=== PATIENT | female | born 1990 | race Caucasian/White ===

== ENCOUNTER 2022-07-18 09:45 | Outpatient (REF) | payer OTHER, SELFPAY ==
[2022-07-18 11:38] LABS: Hematocrit 35.9 % (37.0-47.0); Mean Corpuscular HGB Conc 33.4 g/dl (31.0-35.0); Mean Corpuscular Hemoglobin 29.2 pg (27.0-33.0); Mean Corpuscular Volume 87.3 fL (80.0-98.0); Mean Platelet Volume 9.8 fL (9.4-12.3); Platelet Count 280 X10*3/uL (160-400); Red Blood Count 4.11 X10*6/uL (4.20-5.50); Red Cell Distribution Width 12.7 % (11.0-16.0); White Blood Count 7.9 X10*3/uL (4.8-10.8)
[2022-07-18 11:40] LABS: Appearance Urine Cloudy; Color Urine Yellow; Glucose Urine UA Negative (Negative); Leukocyte Esterase Urine Trace (Negative); Nitrite Urine Negative (Negative); PH 5.5 (5.0-9.0); Specific Gravity - Urine 1.015 (1.005-1.025); UMIC TRIGGER UA YES; Urine Blood Small (1+) (Negative); Urine Ketones Negative (Negative); Urine Protein Negative (Neg-Trace)
[2022-07-18 11:59] LABS: Bacteria Urine 1+ (None Seen); Hyaline Casts Urine 0-2 /LPF (0-2); WBC Urine 0-5 /HPF (0-5)
[2022-07-18 12:00] LABS: RBC Urine 0-2 /HPF (0-2)
[2022-07-18 12:35] LABS: TSH reflex Free T4 1.18 uIU/mL (0.32-4.0)
[2022-07-18 12:43] LABS: Alanine Aminotransferase 18 U/L (0-31); Albumin Level 4.1 g/dL (3.5-5.0); Alkaline Phosphatase 56 U/L (39-117); Anion Gap 16 (12-20); Aspartate Amino Transferase 14 U/L (5-31); Bilirubin Total 0.2 mg/dL (0.0-1.0); Blood Urea Nitrogen 9 mg/dL (9-16); Carbon Dioxide 21 mmol/L (22-29); Chloride 105 mmol/L (96-108); Cholesterol 179 mg/dL; Estimated Glomerular Filt Rate > 60; Glucose Fasting 87 mg/dL (60-99); HDL Cholesterol 33 mg/dL; LDL Cholesterol Calculated 107 mg/dl; Potassium 4.6 mmol/L (3.3-5.1); Sodium 137 mmol/L (135-145); Total Protein 6.9 g/dL (6.5-8.0); Triglycerides 197 mg/dL
== END 2022-07-18 09:46 | disposition home or self-care (01) ==
LOC: HO.WFDLDS 09:45
PROVIDERS: Visit Provider Hospitalist
DX: Z00.00 Encounter for general adult medical examination without abnormal findings (principal)
CPT/HCPCS: 36415; 80053; 80061; 81001; 84443; 85027

== ENCOUNTER 2022-07-22 10:42 | Outpatient (REF) | payer OTHER, SELFPAY ==
[2022-07-22 14:17] LABS: Appearance Urine Clear; Color Urine Yellow; Glucose Urine UA Negative (Negative); Leukocyte Esterase Urine Negative (Negative); Nitrite Urine Negative (Negative); PH 5.5 (5.0-9.0); UMIC TRIGGER UA YES; Urine Blood Trace (Negative); Urine Ketones Negative (Negative); Urine Protein Negative (Neg-Trace)
[2022-07-22 14:24] LABS: Iron 65 mcg/dL (30-160); Percent Iron Saturation 18 % (15-50); Total Iron Binding Capacity 366 mcg/dL (228-428); Unsaturated Iron Binding 301 ug/dL
[2022-07-22 14:29] LABS: Bacteria Urine None Seen (None Seen); RBC Urine 0-2 /HPF (0-2); Squamous Epithelial Cell Urine 0-2 /HPF (0-2); WBC Urine 0-5 /HPF (0-5)
[2022-07-22 14:30] LABS: Hyaline Casts Urine 0-2 /LPF (0-2)
[2022-07-22 15:16] LABS: Folate 14.4 ng/mL (> or = 4.0); Vitamin B12 316 pg/mL (200-900)
== END 2022-07-22 10:43 | disposition home or self-care (01) ==
LOC: HO.WFDLDS 10:42
PROVIDERS: Visit Provider Hospitalist
DX: D64.9 Anemia, unspecified (principal); Z11.3 Encounter for screening for infections with a predominantly sexual mode of transmission
CPT/HCPCS: 36415; 81001; 82607; 82746; 83540

== ENCOUNTER 2023-09-27 08:49 | Outpatient (AMB) | payer BC, SELFPAY ==
--- NOTE | 2023-09-27 08:54 | MHC.PC.OV ---
Vital Signs 09/27/23 08:56 Height 5 ft 4 in Weight 229 lb BMI 39.3 BP 120/68 Blood Pressure Location Lt brachial Position Sitting Pulse 83 Pulse Source Pulse Oximeter Pulse Oximetry (%) 98 Oxygen Delivery Method Room Air Intake Visit Reasons: Physical Exam Intake Note: Patient is here today for her physical. Patient would like to talk about weight loss shot. Allergies No Known Allergies Allergy (Verified 09/27/23 08:57) Tobacco use date assessed: 09/27/23 Dental Screening Dental Screen Date: 09/27/23 Did you have a dental visit in the last 12 months?: Yes Did you have a dental problem in the last 6 months where you did not have access to dental care?: No Was dental information given to patient?: Patient has dentist HPI Physical Exam HPI Details 33 y/o female presents for a CPE with f/u labs and health maintenance. No recent labs to review. She would like to discuss weight management. She notes she goes to the gym about 2-3x a week. She has not had a pap smear for more than 3 years and states she needs an Ob-Practice Support Specialist. Pt reports triglycerides have been in the 300s. She notes she is undergoing Accutane treatment. [facility] Surgical History Hx of appendectomy Social History Housing: House Patient Tobacco Use Status: Never used Tobacco e-Cigarette/Vaping Use: Never Used service: No Current occupational status: employed Current occupational exposures/hazards: No Cognitive needs: No Hearing needs: No Vision needs: No Questionnaire Thrive Questionnaire Date Thrive assessed: 07/06/22 ERNESTO-7 AMB Questionnaire ERNESTO-7 Date ERNESTO - 7 assessed: 07/06/22 Source: Developed by Drs. Sina Scanlon, Loly Armas, Jaya Eason and colleagues, with an educational lourdes from [employer]. Review of Systems Const Denies chills, Denies fatigue, Denies fever(s), Denies headache(s) and Denies weakness Eyes Denies change in vision ENT Denies dizziness, Denies headache(s), Denies hearing loss, Denies nasal congestion, Denies sinus pain, Denies sinus pressure and Denies sore throat Card Denies chest pain, Denies lightheadedness, Denies dyspnea and Denies other (palpitations) Resp Denies cough, Denies dyspnea and Denies wheezing GI Denies abdominal pain, Denies melena, Denies hematochezia, Denies change in bowel habits, Denies dyspepsia and Denies nausea Denies hematuria and Denies dysuria Musc Denies abnormal gait, Denies myalgias, Denies arthralgias, Denies numbness and Denies tingling Skin/Breast Denies rash, Denies unusual bruising and Denies wounds Neuro Denies abnormal gait, Denies dizziness, Denies headache(s), Denies memory loss, Denies numbness, Denies Sensory deficit (Neuro), Denies tingling and Denies weakness Psych Denies anxiety, Denies depression and Denies memory loss Endo Denies cold intolerance, Denies fatigue, Denies heat intolerance, Denies polydipsia and Denies polyuria Viet/Lymph Denies easy bleeding and Denies easy bruising Aller/Immun Denies wheezing Physical exam (Primary Care) Vital Signs: Last Vital Signs Pulse 83 09/27/23 08:56 BP 120/68 09/27/23 08:56 Pulse Ox 98 09/27/23 08:56 Oxygen Delivery Method Room Air 09/27/23 08:56 BMI result Body Mass Index 39.3 Tobacco/Smoking Status: Tobacco use Status Tobacco use date assessed 09/27/23 09/27/23 09:04 Patient Tobacco Use Status Never used Tobacco 09/27/23 08:56 e-Cigarette/Vaping Use Never Used 09/27/23 08:56 Thrive Assessment: Date of Thrive Assessment Date Thrive assessed 07/06/22 09/27/23 08:56 Const General: no acute distress, well developed, alert and awake Nutritional Appearance: well nourished and obese Orientation/consciousness: patient oriented x3 HENMT Head: Yes normocephalic and Yes atraumatic Ears: hearing grossly normal bilaterally and TM's normal bilaterally General nose exam: Normal external nose present and Normal nares present Mouth: Normal oral and palatal mucosa present and moist mucous membranes Teeth and gingiva: dentition normal Throat: Yes posterior oropharynx normal Eyes General: appearance normal, both eyes and all related structures Pupils: Equal, round and reactive pupils present and Pupil accommodation reflex normal EOM: EOMs intact bilaterally Neck Neck: Yes normal visual inspection, Yes no lymphadenopathy and Yes trachea midline Thyroid: Thyroid normal Carotids: no bruits Lymphatic: no lymphadenopathy noted Chest Chest palpation & inspection: normal inspection of the chest Resp Effort & Inspection: normal respiratory effort Auscultation: clear to auscultation bilaterally Cardio Rate: regular rate Rhythm: regular rhythm Heart sounds: S1 normal heart sound present, S2 normal heart sound present, no gallops, no murmurs and no rubs Bruits: no abdominal aortic bruits and no carotid bruits GI Palpation (GI): No Abdominal aortic bruit present, Soft to palpation, nontender, No hepatosplenomegaly present and No Rebound tenderness present Auscultation: normal bowel sounds General: Yes no CVA tenderness Back/Spine/Pelvis Back: no CVA tenderness Cervical Spine: cervical ROM normal and No Cervical spine tenderness Thoracic/Lumbar Spine: thoraco-lumbar ROM normal, No pain with thoraco-lumbar ROM, No thoracic spinal tenderness and No lumbar spinal tenderness Skin Lesions: no lesions Rashes: no rashes Trauma: no lacerations or abrasions Wounds: no wounds Nails: normal Neuro General: patient oriented x3 Cranial nerves: Yes Equal, round and reactive pupils present Cognition (Neuro): normal cognition Gait exam (Neuro): Normal gait present Motor exam (neuro): 5/5 motor strength present throughout Sensory Exam: No Sensory deficit (Neuro) Deep tendon reflexes (DTR's): Right patellar reflex intensity grade: 2+ and Left patellar reflex intensity grade: 2+ Extrem General: Yes normal to inspection and No edema Psych Appearance: grossly normal Affect: normal affect Attitude: cooperative Thought process: Normal thought process present Assessment and Plan Assessment & Plan (1) Annual physical exam: Code(s): Z00.00 - Encounter for general adult medical examination without abnormal findings Plan: 33-year-old?female?presents?for?complete?physical?exam Encouraged?healthy?diet?with?active?lifestyle?and?plenty?of?exercise (2) Obesity (BMI 30-39.9): Code(s): E66.9 - Obesity, unspecified Plan: Check?labs Patient?is?interested?in?medications?for?weight?loss. Will?follow-up?on?labs?and?discuss?with?patient?regarding?medications?and?we?also?discussed?possible?referral?to?medical?weight?management. (3) Screening for cervical cancer: Code(s): Z12.4 - Encounter for screening for malignant neoplasm of cervix Plan: No?recent?Pap?smear?in?the?last?few?years. She?has?never?had?an?abnormal?Pap?smear She?would?like?a?referral?back?to[facility]?OBGYN-referred (4) Hypertriglyceridemia: Code(s): E78.1 - Pure hyperglyceridemia Orders: Orders Comprehensive [place]. Panel Fast Today Z00.00 - Encounter for general adult medical examination without abnormal findings Complete Blood Count Auto Diff Today Z00.00 - Encounter for general adult medical examination without abnormal findings Lipid Panel Today Z00.00 - Encounter for general adult medical examination without abnormal findings Microalbumin, Random (w Creat) Today I10 - Essential (primary) hypertension TSH reflex Free T4 Today Z00.00 - Encounter for general adult medical examination without abnormal findings UA and rflx microscopic Today Z00.00 - Encounter for general adult medical examination without abnormal findings Referrals [employer] Referral Z12.4 - Encounter for screening for malignant neoplasm of cervix Coding Level of Care Code Est Pt Level 3 (10831) Est Pt Prev Care 18-39y(39611) Diagnoses Annual physical exam Z00.00 Obesity (BMI 30-39.9) E66.9 Screening for cervical cancer Z12.4 Hypertriglyceridemia E78.1
[2023-09-27 08:56] VITALS: BP 120/68; PULSE 83; O2SAT 98; BMI 39.3
== END 2023-09-27 09:20 | disposition home or self-care (01) ==
PROVIDERS: PCP Family Medicine; Visit Provider Family Medicine
DX: Z00.00 Encounter for general adult medical examination without abnormal findings (principal); E66.9 Obesity, unspecified; E78.1 Pure hyperglyceridemia; Z68.39 Body mass index [BMI] 39.0-39.9, adult
CPT/HCPCS: 99395

== ENCOUNTER 2023-09-27 09:21 | Outpatient (REF) | payer BC, SELFPAY ==
[2023-09-27 11:35] LABS: MANUAL DIFF FLAG NO
[2023-09-27 11:42] LABS: Appearance Urine Clear; Color Urine Yellow; Glucose Urine UA Negative (Negative); Leukocyte Esterase Urine Negative (Negative); Nitrite Urine Negative (Negative); PH 5.5 (5.0-9.0); Urine Blood Negative (Negative); Urine Ketones Negative (Negative); Urine Protein Negative (Neg-Trace)
[2023-09-27 11:55] LABS: Basophils Percent Auto 0.3 % (0-2); Eosinophils Absolute Auto 0.2 X10*3/uL (0.0-0.4); Eosinophils Percent Auto 1.7 % (0-4); Hematocrit 40.3 % (37.0-47.0); Hemoglobin 13.5 g/dl (12.0-16.0); Imm Gran Abs Auto 0.05 X10*3/uL (0.00-0.03); Imm Gran Pct Auto 0.5 % (0.0-0.4); Lymphocytes Absolute Auto 2.8 X10*3/uL (1.2-4.9); Lymphocytes Percent Auto 28.1 % (20-40); Mean Corpuscular HGB Conc 33.5 g/dl (31.0-35.0); Mean Corpuscular Hemoglobin 29.7 pg (27.0-33.0); Mean Corpuscular Volume 88.8 fL (80.0-98.0); Mean Platelet Volume 9.4 fL (9.4-12.3); Monocytes Absolute Auto 0.5 X10*3/uL (0.1-1.2); Monocytes Percent Auto 5.1 % (2-11); Neutrophils Absolute Auto 6.4 x10*3/uL (2.0-8.3); Neutrophils Percent Auto 64.3 % (45-73); Platelet Count 289 X10*3/uL (160-400); Red Blood Count 4.54 X10*6/uL (4.20-5.50); Red Cell Distribution Width 12.8 % (11.0-16.0); White Blood Count 9.9 X10*3/uL (4.8-10.8)
[2023-09-27 12:38] LABS: Creatinine Urine 52.82 mg/dL; Microalbumin Urine < 5.0 mg/L
[2023-09-27 12:53] LABS: Alanine Aminotransferase 33 U/L (0-31); Albumin Level 4.3 g/dL (3.5-5.0); Alkaline Phosphatase 73 U/L (39-117); Anion Gap 14 (12-20); Aspartate Amino Transferase 26 U/L (5-31); Bilirubin Total 0.3 mg/dL (0.0-1.0); Blood Urea Nitrogen 7 mg/dL (9-16); Calcium 9.5 mg/dL (8.4-10.2); Carbon Dioxide 22 mmol/L (22-29); Chloride 107 mmol/L (96-108); Cholesterol 208 mg/dL (<200); Estimated Glomerular Filt Rate > 60; Glucose Fasting 100 mg/dL (60-99); HDL Cholesterol 36 mg/dL (>40); LDL Cholesterol Calculated 99 mg/dL (<100); Potassium 4.5 mmol/L (3.3-5.1); Sodium 138 mmol/L (135-145); Total Protein 7.7 g/dL (6.5-8.0); Triglycerides 368 mg/dL (<150)
[2023-09-27 12:56] LABS: TSH reflex Free T4 1.49 uIU/mL (0.32-4.0)
== END 2023-09-27 09:22 | disposition home or self-care (01) ==
LOC: HO.WFDLDS 09:21
PROVIDERS: Visit Provider Family Medicine
DX: Z00.00 Encounter for general adult medical examination without abnormal findings (principal); I10 Essential (primary) hypertension
CPT/HCPCS: 36415; 80053; 80061; 81003; 82043; 82570; 84443; 85025

== ENCOUNTER 2023-11-01 16:38 | Outpatient (AMB) | payer BC, SELFPAY ==
--- NOTE | 2023-11-01 15:40 | A.OFFPC_ITS ---
Intake Visit Reasons: f/u CPE Intake Note: Patient is following up on labs today from physical. Allergies No Known Allergies Allergy (Verified 11/01/23 16:30) Tobacco use date assessed: 11/01/23 HPI f/u CPE HPI Details 33 y/o female presents to f/u CPE-labs v ia telemedicine. Labs were drawn 09/27/23. Reviewed labs with pt. Elevated fasting glucose of 100. Mildly elevated ALT of 33. Triglycerides 368. TC 208. LDL 99. HDL low at 36. PFSH Surgical History (Reviewed 11/01/23 @ 16:31 by Gissel Fox [facility]) Hx of appendectomy Social History Housing: House Patient Tobacco Use Status: Never used Tobacco e-Cigarette/Vaping Use: Never Used service: No Current occupational status: employed Current occupational exposures/hazards: No Cognitive needs: No Hearing needs: No Vision needs: No Questionnaire Thrive Questionnaire Date Thrive assessed: 07/06/22 ERNESTO-7 AMB Questionnaire ERNESTO-7 Date ERNESTO - 7 assessed: 07/06/22 Source: Developed by Drs. Sina Scanlon, Loly Armas, Jaya Eason and colleagues, with an educational lourdes from [employer]. Physical exam (Primary Care) Tobacco/Smoking Status: Tobacco use Status Tobacco use date assessed 11/01/23 11/01/23 16:32 Patient Tobacco Use Status Never used Tobacco 11/01/23 15:41 e-Cigarette/Vaping Use Never Used 11/01/23 15:41 Thrive Assessment: Date of Thrive Assessment Date Thrive assessed 07/06/22 11/01/23 15:41 Telehealth Telehealth Location of provider rendering services: practice address Location of patient: address on file Patient Identification confirmed using: Name, : Yes Telehealth method: voice only Patient verbally consented to treatment: Yes Patient verbally consented to billing insurance company: Yes Patient informed of any privacy concerns related to visit: Yes Minutes spent on Phone/Video with Pt.: 8 Assessment and Plan Assessment & Plan (1) Hypertriglyceridemia: Code(s): E78.1 - Pure hyperglyceridemia Plan: Triglycerides?are?significantly?elevated?above?350 Start?fenofibrate Will?recheck?in?about?2?months (2) Elevated ALT measurement: Code(s): R74.01 - Elevation of levels of liver transaminase levels Plan: Likely?secondary?to?fatty?liver?disorder Encouraged?weight?loss Will?recheck?liver?enzymes?in?about?2?months If?still?elevated?will?check?liver?ultrasound (3) Elevated fasting glucose: Code(s): R73.01 - Impaired fasting glucose Plan: Mildly?elevated?fasting?blood?sugar Will?check?A1c Encouraged?weight?loss (4) Low HDL (under 40): Code(s): E78.6 - Lipoprotein deficiency Plan: Encouraged?exercise Orders: Orders Lipid Panel Today E78.6 - Lipoprotein deficiency, Z00.00 - Encounter for general adult medical examination without abnormal findings Comprehensive [place]. Panel Fast Today R74.01 - Elevation of levels of liver transaminase levels, Z00.00 - Encounter for general adult medical examination without abnormal findings Hemoglobin A1c Today E66.9 - Obesity, unspecified, R73.01 - Impaired fasting glucose Medications: New fenofibrate 160 mg PO DAILY 30 tabs 2RF 30 days E78.1 - Pure hyperglyceridemia semaglutide (weight loss) (Eliza) administer weeks 1 through 4 of therapy 0.25 mg (0.5 mL) subcut QWEEK 2 mL 2RF 28 days E66.9 - Obesity, unspecified Coding Level of Care Code Tele Est Pt Level 2 (83912) Diagnoses Hypertriglyceridemia E78.1 Elevated ALT measurement R74.01 Elevated fasting glucose R73.01 Low HDL (under 40) E78.6
== END 2023-11-01 17:00 ==
LOC: HO.HMGFM 16:38
PROVIDERS: PCP Family Medicine; Visit Provider Family Medicine
DX: E78.1 Pure hyperglyceridemia (principal); R74.01 Elevation of levels of liver transaminase levels; R73.01 Impaired fasting glucose; E78.6 Lipoprotein deficiency
CPT/HCPCS: 99441

== ENCOUNTER 2024-02-02 09:39 | Outpatient (AMB) | payer BC, SELFPAY ==
[2024-02-02 09:46] VITALS: BP 122/76; PULSE 72; RESP 13; TEMP 36.4; O2SAT 99; BMI 36.9
--- NOTE | 2024-02-02 09:46 | MHC.PC.OV ---
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 Accompanied by: Self / Same As Patient Allergies No Known Allergies Allergy (Verified 02/02/24 09:51) Tobacco use date assessed: 11/01/23 Dental Screening Dental Screen Date: 09/27/23 [facility] Medical History (Updated 02/02/24 @ 09:53 by BOBBI Kenney) No pertinent past medical history Surgical History Hx of appendectomy Social History Housing: House Patient Tobacco Use Status: Never used Tobacco e-Cigarette/Vaping Use: Never Used service: No Current occupational status: employed Current occupation: [employer] Current occupational exposures/hazards: No Cognitive needs: No Hearing needs: No Vision needs: No Questionnaire Thrive Questionnaire Date Thrive assessed: 07/06/22 ERNESTO-7 AMB Questionnaire ERNESTO-7 Date ERNESTO - 7 assessed: 07/06/22 Source: Developed by Drs. Sina Scanlon, Loly Armas, Jaya Eason and colleagues, with an educational lourdes from [employer]. Physical exam (Primary Care) Tobacco/Smoking Status: Tobacco use Status Tobacco use date assessed 11/01/23 11/01/23 16:32 Patient Tobacco Use Status Never used Tobacco 11/01/23 15:41 e-Cigarette/Vaping Use Never Used 11/01/23 15:41 Thrive Assessment: Date of Thrive Assessment Date Thrive assessed 07/06/22 11/01/23 15:41 Coding
--- NOTE | 2024-02-02 09:48 | MHC.PC.OV ---
Vital Signs 02/02/24 09:46 Height 5 ft 4 in Weight 215 lb 4 oz BMI 36.9 BP 122/76 Blood Pressure Location Rt brachial Position Sitting Respiration 13 Pulse 72 Pulse Source Pulse Oximeter Temp 97.6 F Temp Source Temporal Artery Scan Pulse Oximetry (%) 99 Oxygen Delivery Method Room Air Intake Visit Reasons: f/u hypertriglyceridemia/discuss wegovy Intake Note: Patient is here for hypertriglyceridema and to discuss wegovy. Allergies No Known Allergies Allergy (Verified 02/02/24 09:51) Tobacco use date assessed: 11/01/23 Dental Screening Dental Screen Date: 09/27/23 HPI f/u hypertriglyceridemia/discuss wegovy HPI Details Patient?presents?to?follow-up?elevated?liver?enzymes,?elevated?triglycerides?and?obesity. She?has?not?gotten?her?labs?drawn?yet?but?will?do?so?today. Started?fenofibrate?and?Wegovy She?is?tolerating?these?well She?has?lost?about?15?lb?on?Wegovy [facility] Medical History (Updated 02/02/24 @ 09:53 by [facility]ana Huerta [facility]) No pertinent past medical history Surgical History Hx of appendectomy Social History (Updated 02/02/24 @ 09:58 by Gissel Fox CMA) Household Members: Family Housing: House 75 years or older and lives alone: No Alcohol intake: current Alcohol intake frequency: holidays/special occasions only Alcohol type: other Patient Tobacco Use Status: Never used Tobacco e-Cigarette/Vaping Use: Never Used Special mookie needs: No service: No Current occupational status: employed Current occupation: [employer] Current occupational exposures/hazards: No Cognitive needs: No Hearing needs: No Vision needs: No Questionnaire Thrive Questionnaire Date Thrive assessed: 07/06/22 ERNESTO-7 AMB Questionnaire ERNESTO-7 Date ERNESTO - 7 assessed: 07/06/22 Source: Developed by Drs. Sina Scanlon, Loly Armas, Jaya Eason and colleagues, with an educational lourdes from [employer]. Review of Systems Const Denies chills, Denies fatigue, Denies fever(s), Denies headache(s) and Denies weakness ENT Denies dizziness and Denies headache(s) Card Denies chest pain, Denies lightheadedness, Denies dyspnea and Denies other (Palpitations) Resp Denies cough, Denies dyspnea, Denies wheezing and Denies other ( shortness of breath) Musc Denies numbness and Denies tingling Neuro Denies dizziness, Denies headache(s), Denies numbness, Denies tingling, Denies paresthesias and Denies weakness Psych Denies anxiety and Denies depression Endo Denies fatigue Aller/Immun Denies wheezing Physical exam (Primary Care) Vital Signs: Last Vital Signs Temp 97.6 F 02/02/24 09:46 Pulse 72 02/02/24 09:46 Resp 13 02/02/24 09:46 BP 122/76 02/02/24 09:46 Pulse Ox 99 02/02/24 09:46 Oxygen Delivery Method Room Air 02/02/24 09:46 BMI result Body Mass Index 36.9 Tobacco/Smoking Status: Tobacco use Status Tobacco use date assessed 11/01/23 02/02/24 09:58 Patient Tobacco Use Status Never used Tobacco 02/02/24 09:58 e-Cigarette/Vaping Use Never Used 02/02/24 09:58 Thrive Assessment: Date of Thrive Assessment Date Thrive assessed 07/06/22 02/02/24 09:58 Const General: no acute distress and well developed Nutritional Appearance: well nourished Orientation/consciousness: patient oriented x3 HENMT Head: Yes normocephalic and Yes atraumatic Eyes General: appearance normal, both eyes and all related structures Pupils: Equal, round and reactive pupils present EOM: EOMs intact bilaterally Resp Effort & Inspection: normal respiratory effort Auscultation: clear to auscultation bilaterally Cardio Rate: regular rate Rhythm: regular rhythm Heart sounds: S1 normal heart sound present, S2 normal heart sound present, no gallops, no murmurs and no rubs Neuro General: patient oriented x3 and gait normal Cranial nerves: Yes Equal, round and reactive pupils present Psych Affect: normal affect Assessment and Plan Assessment & Plan (1) Elevated ALT measurement: Code(s): R74.01 - Elevation of levels of liver transaminase levels Plan: Patient?has?not?gotten?her?labs?drawn?yet?but?will?do?so?today. (2) Hypertriglyceridemia: Code(s): E78.1 - Pure hyperglyceridemia Plan: Started?patient?on?fenofibrate?and?she?is?tolerating?this.??She?has?not?gotten?her?labs?drawn?yet?but?will?do?so?today. (3) Obesity (BMI 30-39.9): Code(s): E66.9 - Obesity, unspecified Plan: Started?Wegovy?0.25?mg?weekly?and?has?already?lost?15?lb?since?last?visit No?adverse?effects She?would?like?to?increase?her?dose..??0.5?mg?dose?has?not?been?available. She?has?some?0.25?mg?doses?left?and?she?will?increase?to?0.5?mg?weekly?with?these - I?will?send?a?script?for?1.0?mg?dose?and?she?will?titrate?up?to?this?when?she?runs?out?of?her?current?dosing. So?she?is?currently?on?0.25?mg?weekly?and?will?go?up?to?0.5?mg?weekly for?2?weeks?and?then?go?up?to?1.0?mg?weekly?if?she?is?tolerating?well. (4) Acne: Code(s): L70.9 - Acne, unspecified Plan: Patient?is?on?Accutane This?may?also?be?part?of?the?cause?of?her?elevated?triglycerides. Repeating?her?triglycerides?today. She?will?be?stopping?Accutane?in?about?2?weeks.??She?can?get?triglycerides?rechecked?a?few?weeks?after?that. Will?call?or?of?action?is?required Orders: Orders Lipid Panel 2 Weeks E78.1 - Pure hyperglyceridemia, Z00.00 - Encounter for general adult medical examination without abnormal findings Comprehensive [place]. Panel Fast 2 Weeks R74.01 - Elevation of levels of liver transaminase levels, Z00.00 - Encounter for general adult medical examination without abnormal findings Medications: Changed From semaglutide (weight loss) (Eliza) administer weeks 1 through 4 of therapy 0.25 mg (0.5 mL) subcut QWEEK 28 days 2 mL 2RF E66.9 - Obesity, unspecified To semaglutide (weight loss) administer weeks 1 through 4 of therapy 1 mg (0.5 mL) subcut QWEEK 28 days 2 mL 2RF E66.9 - Obesity, unspecified Coding Level of Care Code Est Pt Level 4 (72433) Diagnoses Elevated ALT measurement R74.01 Hypertriglyceridemia E78.1 Obesity (BMI 30-39.9) E66.9 Acne L70.9
== END 2024-02-02 10:14 | disposition home or self-care (01) ==
PROVIDERS: PCP Family Medicine; Visit Provider Family Medicine
DX: R74.01 Elevation of levels of liver transaminase levels (principal); E78.1 Pure hyperglyceridemia; E66.9 Obesity, unspecified; Z68.36 Body mass index [BMI] 36.0-36.9, adult; L70.9 Acne, unspecified
CPT/HCPCS: 99214

== ENCOUNTER 2024-02-02 10:25 | Outpatient (REF) | payer BC, SELFPAY ==
[2024-02-02 11:52] LABS: Estimated Average Glucose 108 mg/dL; Hemoglobin A1c % 5.4 % (<6.0)
[2024-02-02 13:06] LABS: Alanine Aminotransferase 20 U/L (0-31); Albumin Level 4.4 g/dL (3.5-5.0); Alkaline Phosphatase 73 U/L (39-117); Anion Gap 14 (12-20); Aspartate Amino Transferase 14 U/L (5-31); Bilirubin Total 0.4 mg/dL (0.0-1.0); Blood Urea Nitrogen 8 mg/dL (9-16); Calcium 9.5 mg/dL (8.4-10.2); Carbon Dioxide 24 mmol/L (22-29); Chloride 106 mmol/L (96-108); Cholesterol 194 mg/dL (<200); Estimated Glomerular Filt Rate > 60; Glucose Fasting 80 mg/dL (60-99); HDL Cholesterol 28 mg/dL (>40); LDL Cholesterol Calculated 132 mg/dL (<100); Potassium 4.1 mmol/L (3.3-5.1); Sodium 140 mmol/L (135-145); Total Protein 7.8 g/dL (6.5-8.0); Triglycerides 171 mg/dL (<150)
== END 2024-02-02 10:26 | disposition home or self-care (01) ==
LOC: HO.WFDLDS 10:25
PROVIDERS: Visit Provider Family Medicine
DX: Z00.00 Encounter for general adult medical examination without abnormal findings (principal); E78.6 Lipoprotein deficiency; R73.01 Impaired fasting glucose; E66.9 Obesity, unspecified; R74.01 Elevation of levels of liver transaminase levels
CPT/HCPCS: 36415; 80053; 80061; 83036

== ENCOUNTER 2024-05-08 15:39 | Outpatient (AMB) | payer BC, SELFPAY ==
--- NOTE | 2024-05-08 15:50 | MHC.PC.OV ---
Vital Signs 05/08/24 15:58 Height 5 ft 4 in Weight 204 lb 8 oz BMI 35.1 BP 100/70 Blood Pressure Location Rt brachial Position Sitting Respiration 16 Pulse 83 Pulse Source Pulse Oximeter Temp 98 F Temp Source Tympanic Pulse Oximetry (%) 99 Oxygen Delivery Method Room Air Intake Visit Reasons: obesity/weight loss/ HTG/elevated liver enzymes. Intake Note: obesity follow up and elevated liver enzymes Patient : No Allergies No Known Allergies Allergy (Verified 05/08/24 15:56) Tobacco use date assessed: 11/01/23 Dental Screening Dental Screen Date: 09/27/23 HPI obesity/weight loss/ HTG/elevated liver enzymes. HPI Details 34 y/o female presents to f/u obesity, weight loss. Had lost about 25 lbs since she has been started on semaglutide 1mg for weight loss. She notes she feels she could use an increase in her semaglutide as she has not lost weight in the last few weeks. Labs drawn 02/02/24. Reviewed labs with pt. Triglycerides improved from 368 to 171. TC 194. LDL 132. HDL low at 28. She reports she is no longer on fenofibrate. Had been on accutane before. FORMERLY [facility], [facility] Medical History (Updated 05/08/24 @ 16:30 by Nelson Snyder) No pertinent past medical history Surgical History Hx of appendectomy Social History (Updated 02/02/24 @ 09:58 by Gissel Fox CMA) Household Members: Family Housing: House 75 years or older and lives alone: No Alcohol intake: current Alcohol intake frequency: holidays/special occasions only Alcohol type: other Patient Tobacco Use Status: Never used Tobacco e-Cigarette/Vaping Use: Never Used Special mookie needs: No Patient : No service: No Current occupational status: employed Current occupation: [employer] Current occupational exposures/hazards: No Cognitive needs: No Hearing needs: No Vision needs: No Questionnaire Thrive Questionnaire Date Thrive assessed: 07/06/22 ERNESTO-7 AMB Questionnaire ERNESTO-7 Date ERNESTO - 7 assessed: 07/06/22 Source: Developed by Drs. Sina Scanlon, Loly Armas, Jaya Eason and colleagues, with an educational lourdes from [employer]. Review of Systems Const Denies chills, Denies fatigue, Denies fever(s), Denies headache(s) and Denies weakness ENT Denies dizziness and Denies headache(s) Card Denies chest pain, Denies lightheadedness, Denies dyspnea and Denies other (Palpitations) Resp Denies cough, Denies dyspnea, Denies wheezing and Denies other ( shortness of breath) Musc Denies numbness and Denies tingling Neuro Denies dizziness, Denies headache(s), Denies numbness, Denies tingling, Denies paresthesias and Denies weakness Psych Denies anxiety and Denies depression Endo Denies fatigue Aller/Immun Denies wheezing Physical exam (Primary Care) Vital Signs: Last Vital Signs Temp 98 F 05/08/24 15:58 Pulse 83 05/08/24 15:58 Resp 16 05/08/24 15:58 BP 100/70 05/08/24 15:58 Pulse Ox 99 05/08/24 15:58 Oxygen Delivery Method Room Air 05/08/24 15:58 BMI result Body Mass Index 35.1 Tobacco/Smoking Status: Tobacco use Status Tobacco use date assessed 11/01/23 05/08/24 15:52 Patient Tobacco Use Status Never used Tobacco 05/08/24 15:52 e-Cigarette/Vaping Use Never Used 05/08/24 15:52 Thrive Assessment: Date of Thrive Assessment Date Thrive assessed 07/06/22 05/08/24 15:52 Const General: no acute distress and well developed Nutritional Appearance: obese Orientation/consciousness: patient oriented x3 [facility] Head: Yes normocephalic and Yes atraumatic Eyes General: appearance normal, both eyes and all related structures Pupils: Equal, round and reactive pupils present EOM: EOMs intact bilaterally Resp Effort & Inspection: normal respiratory effort Auscultation: clear to auscultation bilaterally Cardio Rate: regular rate Rhythm: regular rhythm Heart sounds: S1 normal heart sound present, S2 normal heart sound present, no gallops, no murmurs and no rubs Neuro General: patient oriented x3 and gait normal Cranial nerves: Yes Equal, round and reactive pupils present Psych Affect: normal affect Assessment and Plan Assessment & Plan (1) Obesity (BMI 30-39.9): Code(s): E66.9 - Obesity, unspecified Plan: Patient?has?lost?about?25?lb. She?is?tolerating?Wegovy?1?mg?weekly. She?would?like?to?increase?this.??Will?increase?to?1.7?mg?week Continue?working?at?weight?loss (2) Elevated ALT measurement: Code(s): R74.01 - Elevation of levels of liver transaminase levels Plan: She?had?had?mildly?elevated?ALT?liver?enzyme?which?is?back?in?normal?range?with?weight?loss Recommended?ongoing?weight?loss We?can?monitor?periodically (3) Hyperlipidemia: Code(s): E78.5 - Hyperlipidemia, unspecified Plan: Patient?had?had?significantly?elevated?triglycerides?and?was?on?fenofibrate?but?also?Accutane. Fenofibrate?had?brought?her?triglycerides?down?well?but?she?has?discontinue?this?when?she?discontinued?Accutane?as?she?feels?this?was?the?likely?cause?of?her?elevated?triglycerides. Rechecking?lipids?and?triglycerides?to?ensure?that?they?are?within?normal?range We?discussed?that?if?triglycerides?are?very?high?again?we?should?discuss?resuming?fenofibrate. (4) Low HDL (under 40): Code(s): E78.6 - Lipoprotein deficiency Plan: Encouraged?increased?exercise Orders: Orders Comprehensive [place]. Panel Fast Today R74.01 - Elevation of levels of liver transaminase levels, Z00.00 - Encounter for general adult medical examination without abnormal findings Lipid Panel Today E78.5 - Hyperlipidemia, unspecified, Z00.00 - Encounter for general adult medical examination without abnormal findings Medications: Changed From semaglutide (weight loss) administer weeks 1 through 4 of therapy 1 mg (0.5 mL) subcut QWEEK 28 days 2 mL 2RF E66.9 - Obesity, unspecified To semaglutide (weight loss) administer weeks 1 through 4 of therapy 1.7 mg (0.75 mL) subcut QWEEK 3 mL 2RF 28 days E66.9 - Obesity, unspecified Coding Level of Care Code Est Pt Level 4 (16253) Diagnoses Obesity (BMI 30-39.9) E66.9 Elevated ALT measurement R74.01 Hyperlipidemia E78.5 Low HDL (under 40) E78.6
[2024-05-08 15:58] VITALS: BP 100/70; PULSE 83; RESP 16; TEMP 36.6; O2SAT 99; BMI 35.1
== END 2024-05-08 16:34 | disposition home or self-care (01) ==
PROVIDERS: PCP Family Medicine; Visit Provider Family Medicine
DX: R74.01 Elevation of levels of liver transaminase levels (principal); E66.9 Obesity, unspecified; Z68.35 Body mass index [BMI] 35.0-35.9, adult; E78.5 Hyperlipidemia, unspecified; E78.6 Lipoprotein deficiency
CPT/HCPCS: 99214

== ENCOUNTER 2024-05-30 09:24 | Outpatient (REF) | payer BC, SELFPAY ==
[2024-05-30 11:55] LABS: Alanine Aminotransferase 18 U/L (0-31); Albumin Level 4.1 g/dL (3.5-5.0); Alkaline Phosphatase 68 U/L (39-117); Anion Gap 10 (12-20); Aspartate Amino Transferase 11 U/L (5-31); Bilirubin Total 0.3 mg/dL (0.0-1.0); Blood Urea Nitrogen 8 mg/dL (9-16); Calcium 9.1 mg/dL (8.4-10.2); Carbon Dioxide 25 mmol/L (22-29); Chloride 107 mmol/L (96-108); Cholesterol 184 mg/dL (<200); Estimated Glomerular Filt Rate > 60; Glucose Fasting 86 mg/dL (60-99); HDL Cholesterol 34 mg/dL (>40); LDL Cholesterol Calculated 120 mg/dL (<100); Potassium 3.9 mmol/L (3.3-5.1); Sodium 138 mmol/L (135-145); Total Protein 7.2 g/dL (6.5-8.0); Triglycerides 154 mg/dL (<150)
== END 2024-05-30 09:25 | disposition home or self-care (01) ==
LOC: HO.WFDLDS 09:24
PROVIDERS: Visit Provider Family Medicine
DX: Z00.00 Encounter for general adult medical examination without abnormal findings (principal); R74.01 Elevation of levels of liver transaminase levels; E78.1 Pure hyperglyceridemia
CPT/HCPCS: 36415; 80053; 80061

== ENCOUNTER 2024-06-05 12:46 | Outpatient (AMB) | payer BC, SELFPAY ==
--- NOTE | 2024-06-05 12:44 | MHC.PC.OV ---
Intake Visit Reasons: f/u labs via telemedicine Allergies No Known Allergies Allergy (Verified 06/05/24 12:45) Medication List - Last Reconciled 06/05/24 by Jaime Nguyen MD semaglutide (weight loss) 1.7 mg (0.75 mL) subcut QWEEK 28 days Tobacco use date assessed: 11/01/23 Dental Screening Dental Screen Date: 09/27/23 HPI f/u labs via telemedicine HPI Details 34 y/o female presents to review lipid panel, triglycerides via telemedicine. Had increased Wegovy for weight loss. Labs drawn 05/30/24. Reviewed labs with pt. Triglycerides improved from 171 to 154. TC 184. LDL 120. HDL low at 34. Pt notes weight loss has been good. 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 How often do you have six or more drinks on one occasion?: Less than monthly Total Score: 1 ERNESTO-7 AMB Questionnaire ERNESTO-7 Date ERNESTO - 7 assessed: 07/06/22 Source: Developed by Drs. Sina Scanlon, Loly Armas, Jaya Eason and colleagues, with an educational lourdes from [employer]. Review of Systems Const Denies chills, Denies fatigue, Denies fever(s), Denies headache(s) and Denies weakness ENT Denies dizziness and Denies headache(s) Card Denies dyspnea Resp Denies cough, Denies dyspnea, Denies wheezing and Denies other (shortness of breath) Musc Denies numbness and Denies tingling Neuro Denies dizziness, Denies headache(s), Denies numbness, Denies tingling and Denies weakness Psych Denies anxiety and Denies depression Endo Denies fatigue Aller/Immun Denies wheezing Physical exam (Primary Care) Tobacco/Smoking Status: Tobacco use Status Tobacco use date assessed 11/01/23 06/05/24 12:45 Patient Tobacco Use Status Never used Tobacco 06/05/24 12:45 e-Cigarette/Vaping Use Never Used 06/05/24 12:45 Thrive Assessment: Date of Thrive Assessment Date Thrive assessed 07/06/22 06/05/24 12:45 Telehealth Telehealth Telehealth Platform: Telephone Location of provider rendering services: practice address Location of patient: address on file Patient Identification confirmed using: Name, : Yes Telehealth method: voice only Patient verbally consented to treatment: Yes Patient verbally consented to billing insurance company: Yes Patient informed of any privacy concerns related to visit: Yes Minutes spent on Phone/Video with Pt.: 5 Assessment and Plan Assessment & Plan (1) Mixed hyperlipidemia: Code(s): E78.2 - Mixed hyperlipidemia Plan: Triglycerides?had?been?significantly?elevated?and?are?much?improved.??Almost?within?normal?range?now?with?ongoing?weight?loss. Continue?weight?loss Will?continue?to?monitor Work?at?diet?low?in?saturated?fats?and?cholesterol (2) Low HDL (under 40): Code(s): E78.6 - Lipoprotein deficiency Plan: LDL?is?still?too?low Encouraged?increased?exercise (3) Obesity (BMI 30-39.9): Code(s): E66.9 - Obesity, unspecified Plan: Patient?continues?weight?loss?with?semaglutide Continue?current?medication.??She?can?call?for?a?dose?increase?if?needed. Continue?weight?loss Orders: Orders TSH reflex Free T4 Today Z00.00 - Encounter for general adult medical examination without abnormal findings Comprehensive [place]. Panel Fast Today Z00.00 - Encounter for general adult medical examination without abnormal findings Lipid Panel Today Z00.00 - Encounter for general adult medical examination without abnormal findings Microalbumin, Random (w Creat) Today I10 - Essential (primary) hypertension UA and rflx microscopic Today Z00.00 - Encounter for general adult medical examination without abnormal findings Vitamin D 25-OH Total Today E55.9 - Vitamin D deficiency, unspecified Coding Level of Care Code Tele Est Pt Level 2 (22007) Diagnoses Mixed hyperlipidemia E78.2 Low HDL (under 40) E78.6 Obesity (BMI 30-39.9) E66.9
== END 2024-06-05 15:57 | disposition home or self-care (01) ==
LOC: HO.HMGFM 12:46
PROVIDERS: PCP Family Medicine; Visit Provider Family Medicine
DX: E78.2 Mixed hyperlipidemia (principal); E78.6 Lipoprotein deficiency; E66.9 Obesity, unspecified
CPT/HCPCS: 99441

== ENCOUNTER → 2024-10-24 15:54 | Outpatient (BNVA) | payer OTHER, SELFPAY | PROVIDERS: PCP Family Medicine; Visit Provider Family Medicine | DX: Z00.00 Encounter for general adult medical examination without abnormal findings (principal); E78.2 Mixed hyperlipidemia; R53.83 Other fatigue | CPT/HCPCS: 96127 ==

== ENCOUNTER 2024-11-06 09:27 | Outpatient (REF) | payer OTHER, SELFPAY ==
[2024-11-06 11:23] LABS: Appearance Urine Clear; Color Urine Yellow; Glucose Urine UA Negative (Negative); Leukocyte Esterase Urine Negative (Negative); Nitrite Urine Negative (Negative); Urine Blood Negative (Negative); Urine Ketones Negative (Negative); Urine Protein Negative (Neg-Trace)
[2024-11-06 11:25] LABS: MANUAL DIFF FLAG NO
[2024-11-06 11:35] LABS: Basophils Percent Auto 0.4 % (0-2); Eosinophils Absolute Auto 0.1 X10*3/uL (0.0-0.4); Eosinophils Percent Auto 0.9 % (0-4); Hematocrit 37.7 % (37.0-47.0); Hemoglobin 12.7 g/dl (12.0-16.0); Imm Gran Abs Auto 0.02 X10*3/uL (0.00-0.03); Imm Gran Pct Auto 0.3 % (0.0-0.4); Lymphocytes Absolute Auto 2.6 X10*3/uL (1.2-4.9); Lymphocytes Percent Auto 33.7 % (20-40); Mean Corpuscular HGB Conc 33.7 g/dl (31.0-35.0); Mean Corpuscular Hemoglobin 29.1 pg (27.0-33.0); Mean Corpuscular Volume 86.3 fL (80.0-98.0); Monocytes Absolute Auto 0.4 X10*3/uL (0.1-1.2); Monocytes Percent Auto 5.6 % (2-11); Neutrophils Absolute Auto 4.5 x10*3/uL (2.0-8.3); Neutrophils Percent Auto 59.1 % (45-73); Platelet Count 267 X10*3/uL (160-400); Red Blood Count 4.37 X10*6/uL (4.20-5.50); Red Cell Distribution Width 12.5 % (11.0-16.0); White Blood Count 7.7 X10*3/uL (4.8-10.8)
[2024-11-06 11:54] LABS: Alanine Aminotransferase 30 U/L (0-31); Albumin Level 4.2 g/dL (3.5-5.0); Alkaline Phosphatase 67 U/L (39-117); Anion Gap 13 (12-20); Aspartate Amino Transferase 22 U/L (5-31); Bilirubin Total 0.6 mg/dL (0.0-1.0); Blood Urea Nitrogen 8 mg/dL (9-16); Calcium 8.9 mg/dL (8.4-10.2); Carbon Dioxide 21 mmol/L (22-29); Chloride 106 mmol/L (96-108); Cholesterol 174 mg/dL (<200); Estimated Glomerular Filt Rate > 60; Glucose Fasting 92 mg/dL (60-99); HDL Cholesterol 35 mg/dL (>40); LDL Cholesterol Calculated 116 mg/dL (<100); Potassium 4.1 mmol/L (3.3-5.1); Sodium 136 mmol/L (135-145); Total Protein 7.5 g/dL (6.5-8.0); Triglycerides 115 mg/dL (<150)
[2024-11-06 11:58] LABS: Creatinine Urine 91.07 mg/dL; Microalbumin Urine < 5.0 mg/L
[2024-11-06 12:22] LABS: Ferritin 71 ng/mL (10-122); TSH reflex Free T4 1.56 uIU/mL (0.32-4.0); Vitamin D 25-OH Total 34.2 ng/mL (>30)
[2024-11-06 12:26] LABS: Folate 8.4 ng/mL (> or = 4.0); Vitamin B12 321 pg/mL (200-900)
== END 2024-11-06 09:28 | disposition home or self-care (01) ==
LOC: HO.WFDLDS 09:27
PROVIDERS: Visit Provider Family Medicine
DX: Z00.00 Encounter for general adult medical examination without abnormal findings (principal); R74.01 Elevation of levels of liver transaminase levels; E78.5 Hyperlipidemia, unspecified; I10 Essential (primary) hypertension; E55.9 Vitamin D deficiency, unspecified; E53.8 Deficiency of other specified B group vitamins; R25.2 Cramp and spasm
CPT/HCPCS: 36415; 80053; 80061; 81003; 82306; 82570; 82607; 82728; 82746; 83735; 84443; 85025

== ENCOUNTER 2024-11-22 12:42 | Outpatient (AMB) | payer OTHER, SELFPAY ==
--- NOTE | 2024-11-22 12:35 | A.OFFPC_ITS ---
Intake Visit Reasons: f/u CPE-labs via telemedicine Plate Glass Installer Required: No Allergies No Known Allergies Allergy (Verified 11/22/24 12:35) Tobacco use date assessed: 10/24/24 Dental Screening Dental Screen Date: 10/24/24 HPI f/u CPE-labs via telemedicine HPI Details 34 y/o female presents to f/u CPE-labs v ia telemedicine. Labs drawn 11/06/24. Reviewed labs with pt. Triglycerides 115. TC 174. LDL 116. HDL low at 35. HPI Comments 2 History of Present Illness Details Documentation assistance for Jaime Nguyen MD, was provided by Nelson Snyder,? Marketing Operations Manager on 11/22/2024 at 3:45 PM EST. I, Dr. Nguyen, have read, observed, and verified documentation. PFSH Medical History No pertinent past medical history Surgical History Hx of appendectomy Social History Household Members: Family Housing: House 75 years or older and lives alone: No Alcohol intake: current Alcohol intake frequency: holidays/special occasions only Alcohol type: other Patient Tobacco Use Status: Never used Tobacco e-Cigarette/Vaping Use: Never Used Special mookie needs: No service: No Current occupational status: employed Current occupation: [employer] [place] Current occupational exposures/hazards: No Cognitive needs: No Hearing needs: No Vision needs: No Questionnaire Thrive Questionnaire Date Thrive assessed: 10/18/24 I am a: Patient What is your living situation today?: I have a steady place to live Within the past 12 months, did the food you bought not last and you didn't have the money to get more?: Never true Within the past 12 months, did you worry whether your food would run out before you got money to buy more?: Never true Do you have trouble paying for medicines?: No Do you have trouble getting transportation to medical appointments?: No Do you have trouble paying your heating and electricity bill?: No Do you have trouble taking care of your child, family member or friend?: No Do you have trouble with day-to-day activities such as bathing, preparing meals, shopping, managing finances, etc.?: No Are you currently unemployed and looking for a job?: No Are you interested in more education?: No Please select the resources that you would like help with: None Currently or been in a relationship where the following occur: No concerns reported THRIVE Score: 0 ERNESTO-7 AMB Questionnaire ERNESTO-7 Date ERNESTO - 7 assessed: 10/24/24 Source: Developed by Drs. Sina Scanlon, Loly Armas, Jaya Eason and colleagues, with an educational lourdes from [employer]. Review of Systems Const Denies chills, Denies fatigue, Denies fever(s), Denies headache(s) and Denies weakness ENT Denies dizziness and Denies headache(s) Card Denies dyspnea Resp Denies cough, Denies dyspnea, Denies wheezing and Denies other (shortness of breath) Musc Denies numbness and Denies tingling Neuro Denies dizziness, Denies headache(s), Denies numbness, Denies tingling and Denies weakness Psych Denies anxiety and Denies depression Endo Denies fatigue Aller/Immun Denies wheezing Physical exam (Primary Care) Tobacco/Smoking Status: Tobacco use Status Tobacco use date assessed 10/24/24 11/22/24 12:36 Patient Tobacco Use Status Never used Tobacco 11/22/24 12:36 e-Cigarette/Vaping Use Never Used 11/22/24 12:36 Thrive Assessment: Date of Thrive Assessment Date Thrive assessed 10/18/24 11/22/24 12:36 Currently or been in a relationship where the following occur: No concerns reported Telehealth Telehealth Telehealth Platform: Telephone Location of provider rendering services: practice address Location of patient: address on file Patient Identification confirmed using: Name, : Yes Telehealth method: voice only Patient verbally consented to treatment: Yes Patient verbally consented to billing insurance company: Yes Patient informed of any privacy concerns related to visit: Yes Minutes spent on Phone/Video with Pt.: 6 Coding Level of Care Code Tele Est Pt Level 2 (92853) Diagnoses Hyperlipidemia E78.5 Low HDL (under 40) E78.6 Leg cramps R25.2 Assessment & Plan Assessment & Plan (1) Hyperlipidemia: Code(s): E78.5 - Hyperlipidemia, unspecified Category: Medical Plan: Mild?at?improving?hyperlipidemia. Patient?is?working?on?weight?loss?with?Wegovy LDL?cholest bryan?has?been?slowly?coming?down?and?her?HDL?cholesterol?is?increasing No?indication?for?a?medicine?at?this?time. Encouraged?ongoing?weight?loss,?exercise?and?a?diet?low?in?saturated?fats?and?ch olesterol (2) Low HDL (under 40): Code(s): E78.6 - Lipoprotein deficiency Category: Medical Plan: As?above (3) Leg cramps: Code(s): R25.2 - Cramp and spasm Category: Medical Plan: Ongoing?leg?cramps?but?patient?notes?that?this?seems?to?be?most?commonly?after?a ?long?shift?at?work. No underlying?cause?was?found?with?lab?work May?be?overuse Continue?good?hydration Get?plenty?of?rest Can?also?try OTC?compression?stockings
== END 2024-11-22 17:05 | disposition home or self-care (01) ==
LOC: HO.HMCFM 12:42
PROVIDERS: PCP Family Medicine; Visit Provider Family Medicine
DX: E78.5 Hyperlipidemia, unspecified (principal); E78.6 Lipoprotein deficiency; R25.2 Cramp and spasm

== ENCOUNTER 2025-02-21 09:55 | Outpatient (REF) | payer OTHER, SELFPAY ==
[2025-02-21 13:13] LABS: Alanine Aminotransferase 29 U/L (0-31); Albumin Level 4.3 g/dL (3.5-5.0); Alkaline Phosphatase 57 U/L (39-117); Anion Gap 11 (12-20); Aspartate Amino Transferase 19 U/L (5-31); Bilirubin Total 0.3 mg/dL (0.0-1.0); Blood Urea Nitrogen 7 mg/dL (9-16); Carbon Dioxide 24 mmol/L (22-29); Chloride 109 mmol/L (96-108); Cholesterol 172 mg/dL (<200); Estimated Glomerular Filt Rate > 60; Glucose Fasting 81 mg/dL (60-99); HDL Cholesterol 36 mg/dL (>40); LDL Cholesterol Calculated 117 mg/dL (<100); Potassium 3.8 mmol/L (3.3-5.1); Sodium 140 mmol/L (135-145); TSH reflex Free T4 1.53 uIU/mL (0.32-4.0); Triglycerides 98 mg/dL (<150); Vitamin D 25-OH Total 29.2 ng/mL (>30)
[2025-02-21 14:54] LABS: Appearance Urine Clear; Color Urine Yellow; Glucose Urine UA Negative (Negative); Leukocyte Esterase Urine Negative (Negative); Nitrite Urine Negative (Negative); PH 6.5 (5.0-9.0); Specific Gravity - Urine <= 1.005 (1.005-1.025); Urine Blood Negative (Negative); Urine Ketones Negative (Negative); Urine Protein Negative (Neg-Trace)
[2025-02-21 16:10] LABS: Creatinine Urine 19.69 mg/dL; Microalbumin Urine < 5.0 mg/L
== END 2025-02-21 09:56 | disposition home or self-care (01) ==
LOC: HO.WFDLDS 09:55
PROVIDERS: Visit Provider Family Medicine
DX: Z00.00 Encounter for general adult medical examination without abnormal findings (principal); I10 Essential (primary) hypertension; E55.9 Vitamin D deficiency, unspecified; E78.2 Mixed hyperlipidemia
CPT/HCPCS: 36415; 80053; 80061; 81003; 82043; 82306; 82570; 84443

== ENCOUNTER 2025-02-26 08:38 | Outpatient (AMB) | payer OTHER, SELFPAY ==
--- NOTE | 2025-02-26 08:48 | A.OFFPC_ITS ---
Vital Signs 02/26/25 08:51 Height 5 ft 4 in Weight 176 lb 2 oz BMI 30.2 BP 110/60 Blood Pressure Location Rt brachial Position Sitting Respiration 16 Pulse 75 Pulse Source Pulse Oximeter Temp 97.8 F Temp Source Oral Pulse Oximetry (%) 99 Oxygen Delivery Method Room Air Intake Visit Reasons: f/u lipids Intake Note: patient is scheduled to review labs with pcp patient also needs med refill Lumber Inspector Required: No Allergies No Known Allergies Allergy (Verified 02/26/25 08:50) Tobacco use date assessed: 10/24/24 Dental Screening Dental Screen Date: 10/24/24 HPI f/u lipids HPI Details Patient?presents?to?follow-up Weight?loss,?lipids?and?labs Continues?to?lose?weight?and?has?lost?over?50?lb.??She?does?notice?a?slow?down?i n?weight?loss?but?has?also?had?decreased?exercise?due?to?right?leg?pain. She?has?been?re sting?the?last?couple?of?weeks?and?the?leg?pain?seems?to?have?resolved?though?sh e?has?not?started?exercising?again?yet. Otherwise?feels?well. [facility] Medical History No pertinent past medical history Surgical History Hx of appendectomy Social History Household Members: Family Housing: House 75 years or older and lives alone: No Alcohol intake: current Alcohol intake frequency: holidays/special occasions only Alcohol type: other Patient Tobacco Use Status: Never used Tobacco e-Cigarette/Vaping Use: Never Used Special mookie needs: No service: No Current occupational status: employed Current occupation: [employer] [place] Current occupational exposures/hazards: No Cognitive needs: No Hearing needs: No Vision needs: No Questionnaire Thrive Questionnaire Date Thrive assessed: 10/18/24 I am a: Patient What is your living situation today?: I have a steady place to live Within the past 12 months, did the food you bought not last and you didn't have the money to get more?: Never true Within the past 12 months, did you worry whether your food would run out before you got money to buy more?: Never true Do you have trouble paying for medicines?: No Do you have trouble getting transportation to medical appointments?: No Do you have trouble paying your heating and electricity bill?: No Do you have trouble taking care of your child, family member or friend?: No Do you have trouble with day-to-day activities such as bathing, preparing meals, shopping, managing finances, etc.?: No Are you currently unemployed and looking for a job?: No Are you interested in more education?: No Please select the resources that you would like help with: None Currently or been in a relationship where the following occur: No concerns reported THRIVE Score: 0 ERNESTO-7 AMB Questionnaire ERNESTO-7 Date ERNESTO - 7 assessed: 10/24/24 Source: Developed by Drs. Sina Scanlon, Loly Armas, Jaya Eason and colleagues, with an educational lourdes from [employer]. Review of Systems Const Denies chills, Denies fatigue, Denies fever(s), Denies headache(s) and Denies weakness ENT Denies dizziness and Denies headache(s) Card Denies chest pain, Denies lightheadedness, Denies dyspnea and Denies other (Palpitations) Resp Denies cough, Denies dyspnea, Denies wheezing and Denies other ( shortness of breath) Musc Details: Right?lateral?leg?pain - resolved/resolving Denies numbness and Denies tingling Neuro Denies dizziness, Denies headache(s), Denies numbness, Denies tingling, Denies paresthesias and Denies weakness Psych Denies anxiety and Denies depression Endo Denies fatigue Aller/Immun Denies wheezing Physical exam (Primary Care) Vital Signs: Last Vital Signs Temp 97.8 F 02/26/25 08:51 Pulse 75 02/26/25 08:51 Resp 16 02/26/25 08:51 BP 110/60 02/26/25 08:51 Pulse Ox 99 02/26/25 08:51 Oxygen Delivery Method Room Air 02/26/25 08:51 BMI result Body Mass Index 30.2 Tobacco/Smoking Status: Tobacco use Status Tobacco use date assessed 10/24/24 02/26/25 08:53 Patient Tobacco Use Status Never used Tobacco 02/26/25 08:53 e-Cigarette/Vaping Use Never Used 02/26/25 08:53 Thrive Assessment: Date of Thrive Assessment Date Thrive assessed 10/18/24 02/26/25 08:53 Currently or been in a relationship where the following occur: No concerns reported Coding Level of Care Code Est Pt Level 4 (29592) Diagnoses Hyperlipidemia E78.5 Obesity (BMI 30-39.9) E66.9 Iliotibial band syndrome, right leg M76.31 Vitamin D deficiency E55.9 Assessment & Plan Assessment & Plan (1) Hyperlipidemia: Code(s): E78.5 - Hyperlipidemia, unspecified Category: Medical Plan: Lipids?remain?elevated?with?low?HDL Will?try?Zetia Work?on?diet?low?in?saturated?fats?and?cholesterol Continue?weight?loss?and?work?at?exercise (2) Obesity (BMI 30-39.9): Code(s): E66.9 - Obesity, unspecified Category: Medical Plan: Continues?to?lose?weight?and?has?lost?over?50?lb. She?not ices?a?decrease?in?the?rate?of?weight?loss?but?has?also?had?a?decrease?in?her?ex ercise?output?due?to?right?lateral?leg?pain-see?below Continue?go?the?and?continue?working?at?weight?loss?through?diet?and?exercise Right?leg?pain?seems?to?have?resolved.??Will?hopefully?be?able?to?start?exercisi ng?again?soon (3) Iliotibial band syndrome, right leg: Code(s): M76.31 - Iliotibial band syndrome, right leg Category: Medical Plan: Right?lateral?leg?pain,?consistent?with?IT?band?syndrome Pain?as?stopped?with?rest She?can?use?ibuprofen,?ice/heat, I?demonstrated?stretching?exercises Ibuprofen?or?topicals?as?needed If?not?improving?will?refer?to?physical?therapy (4) Vitamin D deficiency: Code(s): E55.9 - Vitamin D deficiency, unspecified Category: Medical Plan: Slightly?low?vitamin-D?level Get?about?50?minutes?of?sun?exposure?day Can?use?an?OTC?supplement Can?monitor?periodically
[2025-02-26 08:51] VITALS: BP 110/60; PULSE 75; RESP 16; TEMP 36.6; O2SAT 99; BMI 30.2
== END 2025-02-26 09:13 | disposition home or self-care (01) ==
LOC: HO.HMCFM 08:45
PROVIDERS: PCP Family Medicine; Visit Provider Family Medicine
DX: E78.5 Hyperlipidemia, unspecified (principal); Z68.30 Body mass index [BMI] 30.0-30.9, adult; E66.9 Obesity, unspecified; M76.31 Iliotibial band syndrome, right leg; E55.9 Vitamin D deficiency, unspecified

== ENCOUNTER → 2025-02-26 08:38 | Outpatient (BNVA) | payer OTHER, SELFPAY | PROVIDERS: PCP Family Medicine; Visit Provider Family Medicine | DX: Z13.89 Encounter for screening for other disorder (principal) ==

== ENCOUNTER 2025-04-01 09:54 | Outpatient (AMB) | payer OTHER, SELFPAY ==
--- NOTE | 2025-04-01 10:26 | A.OFFPSYCH_ITS ---
Intake Intake Visit Reasons: consultation Adult Health Clinical Nurse Specialist Required: No Allergies No Known Allergies Allergy (Verified 02/26/25 08:50) Medication List - Last Reconciled 04/01/25 by Radha Jean Baptiste APRN ezetimibe (Zetia) 10 mg PO DAILY semaglutide (weight loss) 2.4 mg (0.75 mL) subcut QWEEK 28 days HPI- Psychiatric Chief Complaint: consultation HPI Narrative: pt referred by PCP for evaluation of anxiety and attention, focus, and concentration. Pt reports having trouble with concentration, focus, attention, and forgetfulness her whole life. She reports being timid and shy as a child. She was diagnosed with dyslexia when she started school and started private school due to her dyslexia by 3rd grade. she thinks that the smaller classes helped her graduate. She reports anxiety started when her twin girls were born 8 years ago. She has never had any medication for her anxiety or attention problems. She does feels that she has to work harder at daily life than her peers. She has more trouble at home with keeping everything organized; at work she says she has less trouble because she has been doing the same job for 27 years. Patient's PHQ-9 equals 14 and her G A D-7 equals 19 she completed the adult ADHD self report scale the ASR S-V 1 0.1 symptom Checklist and score of 6 for the core symptoms of ADHD an 8/12 for the additional contributing symptoms of ADHD. She describes feeling anxious nervous and worried every day she has trouble controlling her worry every single day she worries about her kids and her she worries about bad things happening to her children. When she hears something on the news about bad things happening about children she feels very empathic and worried about her own children she has trouble relaxing she can become irritable and annoyed and frequently feels something bad will happen. She also reports a decreased interest in activities she feels down and depressed at times she feels bad about herself she feels like a failure at times she has trouble concentrating on things such as reading the newspaper or watching television. She reports frequent forgetfulness for example she will have something on her to-do list at home and she might think of it several times and then get distracted and at the end of the day and the next day she will recall that she was supposed to do something yesterday. She reports that her brain is always busy is always thinking of multiple things to do she often procrastinates she often feels overwhelmed she has trouble wrapping up final details of projects she has trouble organizing tasks that are more complex she is forgetful of appointments paying bills or other obligations she will procrastinate or delay if it is a complex task she does fidget if she is required to sit for a long period of time she feels overly active and compelled to be busy all the time she can make small mistakes especially him pouring projects. She does have trouble concentrating on what people are saying to her even when they are speaking directly to her she can become distracted by noise around her she often finishes other people's sentences and has difficulty waiting her turn and can interrupt others when they are busy. Recently her and both daughters were diagnosed with ADHD and she feels she has similar symptoms to 1 of her daughters. She has seen the significant change in both her and daughters with medication interventions. She was motivated to seek out help because she has been coping with these things for long and would like some help. She denies SI and HI. There is no evidence of psychosis or oziel Past Psychiatric History: dx dyslexia in grade school; no past psych tx Mental Status Exam Mental Status Exam Patient Appearance: Well Grooomed and Appropriate Patient Orientation: Person, Place, Time and Situation Level of Consciousness: Awake, Appropriate and Alert Patient Behavior: Appropriate, Cooperative, Anxious and Good Eye Contact Mood Description: Appropriate and Sad Affect Description: Appropriate and Sad Patient Cognition Impaired: No Ability to Follow Directions: Fair Speech Pattern: Clear and Appropriate Memory Description: Episodic Impaired Hallucinations: None Delusions: Not Present Thought Process: Intact, Distracted and Goal Oriented Thought Content: positive for Intact and positive for Goal Oriented Judgement: Good Assessment and Plan Assessment & Plan (1) ADHD (attention deficit hyperactivity disorder), combined type: Status: Acute Code(s): F90.2 - Attention-deficit hyperactivity disorder, combined type (2) ERNESTO (generalized anxiety disorder): Status: Acute Code(s): F41.1 - Generalized anxiety disorder Plan take tenex (guanfacine ) 1 mg tabs take 1/2 tab in am and pm stay hydrated on days you work overnight do not take the bedtime dose start vit D3 400-1000 IU daily return in 3 -4 weeks Medications: New guanfacine 0.5 mg (1/2 x 1 mg) PO BID@0900,1700 30 tabs 1RF Counseling and coordination of Care Pt. Self Management counseling: Maintenance-social rhythm, Mod caffeine/ETOH intake, Nutrition education and improvement, Sleep hygiene, Behavior activation and General coping skills Medication management counseling: Effectiveness, Side effects, Dosing range, Duration, Drug interaction and Adherence Diagnosis and Prognosis Counseling: Accuracy of diagnosis, Prognosis over time, Impact of diagnosis on life functions, Impact of family relationship, Problematic behaviors secondary to diagnosis and Adequacy of current interventions Details: I spent 75 minutes reviewing the record, seeing the patient and documenting in the medical record. Counseling provided to the patient/caregiver as outlined below. Addressed patient/caregiver concerns regarding current medication regime including effective adherence. Addressed patient/caregiver concerns regarding diagnosis and prognosis including accuracy of diagnosis, prognosis over time, impact of diagnosis. Addressed patient/caregiver concerns regarding impact of recent stressors. [facility] Medical History No pertinent past medical history Surgical History Hx of appendectomy Social History Household Members: Family Housing: House 75 years or older and lives alone: No Alcohol intake: current Alcohol intake frequency: holidays/special occasions only Alcohol type: other Patient Tobacco Use Status: Never used Tobacco e-Cigarette/Vaping Use: Never Used Special mookie needs: No service: No Current occupational status: employed Current occupation: [employer] Current occupational exposures/hazards: No Cognitive needs: No Hearing needs: No Vision needs: No Social History: lives with and 2 daughters (twins 8 yr old) 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 Substance History: none Trauma History: none (having dyslexia and school experience can be traumatic) Coding Level of Care Code Psych Diag Eval w/Med (23366) Diagnoses ADHD (attention deficit hyperactivity disorder), combined type F90.2 ERNESTO (generalized anxiety disorder) F41.1
== END 2025-04-01 10:59 | disposition home or self-care (01) ==
LOC: HO.HOP 09:54
PROVIDERS: PCP Family Medicine; Visit Provider Clinical Nurse Specialist Psychiatric/Mental Health
DX: F90.2 Attention-deficit hyperactivity disorder, combined type (principal); F41.1 Generalized anxiety disorder
CPT/HCPCS: 90792

== ENCOUNTER → 2025-04-01 09:54 | Outpatient (BNVA) | payer OTHER, SELFPAY | PROVIDERS: PCP Family Medicine; Visit Provider Clinical Nurse Specialist Psychiatric/Mental Health | DX: F90.2 Attention-deficit hyperactivity disorder, combined type (principal); F41.1 Generalized anxiety disorder | CPT/HCPCS: 90792 ==

== ENCOUNTER 2025-05-01 10:35 | Outpatient (AMB) | payer OTHER, SELFPAY ==
--- NOTE | 2025-05-01 10:32 | MHC.OFFVISPS ---
Intake Intake Visit Reasons: f/u consultation Animal Biologist Required: No Allergies No Known Allergies Allergy (Verified 02/26/25 08:50) Medication List - Last Reconciled 05/01/25 by Radha Jean Baptiste APRN ezetimibe (Zetia) 10 mg PO DAILY guanfacine 0.5 mg (1/2 x 1 mg) PO BID@0900,1700 semaglutide (weight loss) 2.4 mg (0.75 mL) subcut QWEEK 28 days HPI- Psychiatric Chief Complaint: f/u consultation HPI Narrative: pt see for follow upp for: anxiety and attention, focus, and concentration. Pt tolerating tenex 1mg 1/2 BID without side effects; she felt it helped the first couple days but she feels her body adjusted and she feels the same as she did at first appt. She is sleeping poorly and says that she has had lifelong sleep problems - waking up to 10 times a night. She has good sleep hygiene but that does not help. No SI or HI. HX: Pt reports having trouble with concentration, focus, attention, and forgetfulness her whole life. She reports being timid and shy as a child. She was diagnosed with dyslexia when she started school and started private school due to her dyslexia by 3rd grade. she thinks that the smaller classes helped her graduate. She reports anxiety started when her twin girls were born 8 years ago. She has never had any medication for her anxiety or attention problems. She does feels that she has to work harder at daily life than her peers. She has more trouble at home with keeping everything organized; at work she says she has less trouble because she has been doing the same job for 27 years. She describes feeling anxious nervous and worried every day she has trouble controlling her worry every single day she worries about her kids and her she worries about bad things happening to her children. When she hears something on the news about bad things happening about children she feels very empathic and worried about her own children she has trouble relaxing she can become irritable and annoyed and frequently feels something bad will happen. She also reports a decreased interest in activities she feels down and depressed at times she feels bad about herself she feels like a failure at times she has trouble concentrating on things such as reading the newspaper or watching television. She reports frequent forgetfulness for example she will have something on her to-do list at home and she might think of it several times and then get distracted and at the end of the day and the next day she will recall that she was supposed to do something yesterday. She reports that her brain is always busy is always thinking of multiple things to do she often procrastinates she often feels overwhelmed she has trouble wrapping up final details of projects she has trouble organizing tasks that are more complex she is forgetful of appointments paying bills or other obligations she will procrastinate or delay if it is a complex task she does fidget if she is required to sit for a long period of time she feels overly active and compelled to be busy all the time she can make small mistakes especially him pouring projects. She does have trouble concentrating on what people are saying to her even when they are speaking directly to her she can become distracted by noise around her she often finishes other people's sentences and has difficulty waiting her turn and can interrupt others when they are busy. Recently her and both daughters were diagnosed with ADHD and she feels she has similar symptoms to 1 of her daughters. She has seen the significant change in both her and daughters with medication interventions. She was motivated to seek out help because she has been coping with these things for long and would like some help. She denies SI and HI. There is no evidence of psychosis or oziel Past Psychiatric History: dx dyslexia in grade school; no past psych tx Subjective Subjective Subjective Medication Compliance: Yes Side effects from medications: No Review of Systems Medical Review of Systems: unchanged Mental Status Exam Mental Status Exam Patient Appearance: Well Grooomed and Appropriate Patient Orientation: Person, Place, Time and Situation Level of Consciousness: Awake, Appropriate and Alert Patient Behavior: Appropriate, Cooperative, Anxious and Good Eye Contact Mood Description: Appropriate and Sad Affect Description: Appropriate and Sad Patient Cognition Impaired: No Ability to Follow Directions: Fair Speech Pattern: Clear and Appropriate Memory Description: Episodic Impaired Hallucinations: None Delusions: Not Present Thought Process: Intact, Distracted and Goal Oriented Thought Content: positive for Intact and positive for Goal Oriented Judgement: Good Assessment and Plan Assessment & Plan (1) ADHD (attention deficit hyperactivity disorder), combined type: Status: Acute Code(s): F90.2 - Attention-deficit hyperactivity disorder, combined type (2) ERNESTO (generalized anxiety disorder): Status: Acute Code(s): F41.1 - Generalized anxiety disorder Plan intuniv 1mg in am x 10 days then increase to 2 mg every morning. stay hydrated review of sleep hygiene: cool temps in bedroom, warm milk at night, snack on cherries, popcorn, turkey. consider magnesium glycinate 100-200 mg at bedtime referral to sleep study as she has never had one. return in 4-6 weeks Medications: New guanfacine ER (Intuniv ER) 1 mg PO DAILY 30 tabs 0RF Orders: Referrals Sleep Medicine Referral G47.00 - Insomnia, unspecified Counseling and coordination of Care Pt. Self Management counseling: Maintenance-social rhythm, Mod caffeine/ETOH intake, Nutrition education and improvement, Sleep hygiene, Behavior activation and General coping skills Medication management counseling: Effectiveness, Side effects, Dosing range, Duration, Drug interaction and Adherence Diagnosis and Prognosis Counseling: Accuracy of diagnosis, Prognosis over time, Impact of diagnosis on life functions, Impact of family relationship, Problematic behaviors secondary to diagnosis and Adequacy of current interventions Details: I spent 40 minutes reviewing the record, seeing the patient and documenting in the medical record. Counseling provided to the patient/caregiver as outlined below. Addressed patient/caregiver concerns regarding current medication regime including effective adherence. Addressed patient/caregiver concerns regarding diagnosis and prognosis including accuracy of diagnosis, prognosis over time, impact of diagnosis. Addressed patient/caregiver concerns regarding impact of recent stressors. [facility] Medical History No pertinent past medical history Surgical History Hx of appendectomy Social History Household Members: Family Housing: House 75 years or older and lives alone: No Alcohol intake: current Alcohol intake frequency: holidays/special occasions only Alcohol type: other Patient Tobacco Use Status: Never used Tobacco e-Cigarette/Vaping Use: Never Used Special mookie needs: No service: No Current occupational status: employed Current occupation: [employer] Current occupational exposures/hazards: No Cognitive needs: No Hearing needs: No Vision needs: No Social History: lives with and 2 daughters (twins 8 yr old) 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 Substance History: none Trauma History: none (having dyslexia and school experience can be traumatic) Coding Level of Care Code Est Pt Level 4 (47145) Diagnoses ADHD (attention deficit hyperactivity disorder), combined type F90.2 ERNESTO (generalized anxiety disorder) F41.1
== END 2025-05-01 11:32 | disposition home or self-care (01) ==
LOC: HO.HOP 10:35
PROVIDERS: PCP Family Medicine; Visit Provider Clinical Nurse Specialist Psychiatric/Mental Health
DX: F90.2 Attention-deficit hyperactivity disorder, combined type (principal); F41.1 Generalized anxiety disorder
CPT/HCPCS: 99214

== ENCOUNTER 2025-06-03 10:54 | Outpatient (AMB) | payer OTHER, SELFPAY ==
--- NOTE | 2025-06-03 10:59 | A.OFFPSYCH_ITS ---
Intake Intake Visit Reasons: f/u consultation Compensation Specialist Required: No Allergies No Known Allergies Allergy (Verified 02/26/25 08:50) Medication List - Last Reconciled 06/03/25 by Radha Jean Baptiste APRN ezetimibe (Zetia) 10 mg PO DAILY guanfacine ER 2 mg PO QPM semaglutide (weight loss) 2.4 mg (0.75 mL) subcut QWEEK 28 days HPI- Psychiatric Chief Complaint: f/u consultation HPI Narrative: pt see for follow up for: anxiety,depression, and and attention, focus, and concentration. Pt reports significant fatigue and sleepiness from the guanfacine; she reports feeling transient lightheadedness. She is sleeping poorly and says that she has had lifelong sleep problems - she has trouble falling asleep and wakes up to 10 times a night. She has good sleep hygiene but that does not help. No SI or HI. PHQ9= 16 and GAD7= 17. She reports no help from guanfacine on her concentration or focus; she remains depressed and worried and anxious every day. she denies SI or HI. NO psychosis. HX: Pt reports having trouble with concentration, focus, attention, and forgetfulness her whole life. She reports being timid and shy as a child. She was diagnosed with dyslexia when she started school and started private school due to her dyslexia by 3rd grade. she thinks that the smaller classes helped her graduate. She reports anxiety started when her twin girls were born 8 years ago. She has never had any medication for her anxiety or attention problems. She does feels that she has to work harder at daily life than her peers. She has more trouble at home with keeping everything organized; at work she says she has less trouble because she has been doing the same job for 27 years. She describes feeling anxious nervous and worried every day she has trouble controlling her worry every single day she worries about her kids and her she worries about bad things happening to her children. When she hears something on the news about bad things happening about children she feels very empathic and worried about her own children she has trouble relaxing she can become irritable and annoyed and frequently feels something bad will happen. She also reports a decreased interest in activities she feels down and depressed at times she feels bad about herself she feels like a failure at times she has trouble concentrating on things such as reading the newspaper or watching television. She reports frequent forgetfulness for example she will have something on her to-do list at home and she might think of it several times and then get distracted and at the end of the day and the next day she will recall that she was supposed to do something yesterday. She reports that her brain is always busy is always thinking of multiple things to do she often procrastinates she often feels overwhelmed she has trouble wrapping up final details of projects she has trouble organizing tasks that are more complex she is forgetful of appointments paying bills or other obligations she will procrastinate or delay if it is a complex task she does fidget if she is required to sit for a long period of time she feels overly active and compelled to be busy all the time she can make small mistakes especially him pouring projects. She does have trouble concentrating on what people are saying to her even when they are speaking directly to her she can become distracted by noise around her she often finishes other people's sentences and has difficulty waiting her turn and can interrupt others when they are busy. Recently her and both daughters were diagnosed with ADHD and she feels she has similar symptoms to 1 of her daughters. She has seen the significant change in both her and daughters with medication interventions. She was motivated to seek out help because she has been coping with these things for long and would like some help. She denies SI and HI. There is no evidence of psychosis or oziel Past Psychiatric History: dx dyslexia in grade school; no past psych tx Subjective Subjective Subjective Medication Compliance: Yes Side effects from medications: Yes (daytime sleepiness and sedation) Review of Systems Medical Review of Systems: unchanged Mental Status Exam Mental Status Exam Patient Appearance: Well Grooomed and Appropriate Patient Orientation: Person, Place, Time and Situation Level of Consciousness: Awake, Appropriate, Drowsy and Alert Patient Behavior: Appropriate, Cooperative, Anxious and Good Eye Contact Mood Description: Appropriate and Sad Affect Description: Appropriate and Sad Patient Cognition Impaired: No Ability to Follow Directions: Fair Speech Pattern: Clear and Appropriate Memory Description: Episodic Impaired Hallucinations: None Delusions: Not Present Thought Process: Intact, Distracted and Goal Oriented Thought Content: positive for Intact and positive for Goal Oriented Judgement: Good Assessment and Plan Assessment & Plan (1) ADHD (attention deficit hyperactivity disorder), combined type: Status: Acute Code(s): F90.2 - Attention-deficit hyperactivity disorder, combined type (2) ERNESTO (generalized anxiety disorder): Status: Acute Code(s): F41.1 - Generalized anxiety disorder (3) Depression, unspecified: Status: Acute Qualifiers: Depression Type: unspecified Qualified Code(s): F32.A - Depression, unspecified Code(s): F32.A - Depression, unspecified Plan intuniv 1mg in am x 10 days then stop add prozac 20 mg daily after on intuniv 1 mg for 3 days ambien 5mg at bedtime prn sleep stay hydrated review of sleep hygiene: cool temps in bedroom, warm milk at night, snack on cherries, popcorn, turkey. consider magnesium glycinate 100-200 mg at bedtime sleep study pending 07/04 return in 6 weeks Medications: New guanfacine ER Take one tab daily for 10 days then stop 1 mg PO DAILY 10 tabs 0RF fluoxetine (Prozac) 20 mg PO DAILY 30 caps 1RF zolpidem (Ambien) 5 mg PO BEDTIME PRN 30 tabs 0RF sleep Discontinued guanfacine ER Discontinued Reason: Doctor's Order 2 mg PO QPM 30 tabs 2RF Counseling and coordination of Care Pt. Self Management counseling: Maintenance-social rhythm, Mod caffeine/ETOH intake, Nutrition education and improvement, Sleep hygiene, Behavior activation, General coping skills and Organization skills and time management Medication management counseling: Effectiveness, Side effects, Dosing range, Duration, Drug interaction and Adherence Diagnosis and Prognosis Counseling: Accuracy of diagnosis, Prognosis over time, Impact of diagnosis on life functions, Impact of family relationship, Problematic behaviors secondary to diagnosis and Adequacy of current interventions Details: I spent 45 minutes reviewing the record, seeing the patient and documenting in the medical record. Counseling provided to the patient/caregiver as outlined below. Addressed patient/caregiver concerns regarding current medication regime including effective adherence. Addressed patient/caregiver concerns regarding diagnosis and prognosis including accuracy of diagnosis, prognosis over time, impact of diagnosis. Addressed patient/caregiver concerns regarding impact of recent stressors. [facility] Medical History No pertinent past medical history Surgical History Hx of appendectomy Social History Household Members: Family Housing: House 75 years or older and lives alone: No Alcohol intake: current Alcohol intake frequency: holidays/special occasions only Alcohol type: other Patient Tobacco Use Status: Never used Tobacco e-Cigarette/Vaping Use: Never Used Special mookie needs: No service: No Current occupational status: employed Current occupation: [employer] Current occupational exposures/hazards: No Cognitive needs: No Hearing needs: No Vision needs: No Social History: lives with and 2 daughters (twins 8 yr old) 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 Substance History: none Trauma History: none (having dyslexia and school experience can be traumatic) Coding Level of Care Code Est Pt Level 5 (76315) Diagnoses ADHD (attention deficit hyperactivity disorder), combined type F90.2 ERNESTO (generalized anxiety disorder) F41.1 Depression, unspecified depression type F32.A Depression Type: unspecified
== END 2025-06-03 11:28 | disposition home or self-care (01) ==
LOC: HO.HOP 10:54
PROVIDERS: PCP Family Medicine; Visit Provider Clinical Nurse Specialist Psychiatric/Mental Health
DX: F32.1 Major depressive disorder, single episode, moderate (principal); F90.2 Attention-deficit hyperactivity disorder, combined type; F41.1 Generalized anxiety disorder
CPT/HCPCS: 99215

== ENCOUNTER 2025-07-22 11:53 | Outpatient (REF) | payer OTHER, SELFPAY | END 2025-07-22 11:54 | disposition home or self-care (01) | LOC: HO.HMGCLDS 11:53 | PROVIDERS: PCP Family Medicine; Visit Provider Clinical Nurse Specialist Psychiatric/Mental Health | DX: Z13.29 Encounter for screening for other suspected endocrine disorder (principal); Z91.89 Other specified personal risk factors, not elsewhere classified | CPT/HCPCS: 36415; 84443; 84481 ==

== ENCOUNTER 2025-07-30 09:21 | Outpatient (AMB) | payer OTHER, SELFPAY ==
[2025-07-30 09:35] VITALS: BP 120/72; PULSE 82; O2SAT 100; BMI 30.5
--- NOTE | 2025-07-30 09:35 | MHC.OFFVIS ---
Vital Signs 07/30/25 09:35 Height 5 ft 4 in Weight 177 lb 8 oz BMI 30.5 BP 120/72 Blood Pressure Location Lt brachial Position Sitting Pulse 82 Pulse Source Pulse Oximeter Pulse Oximetry (%) 100 Oxygen Delivery Method Room Air Intake Visit Reasons: INP - Insomnia Intake Note: Patient presents [facility] [employer] Insomnia. lifelong history of poor sleep with 10+ waking throughout the night. No snoring/apnea/gasping. Goes to bed 9:30pm wakes up around 7am. Wakes up 10-15times a night. Naps 1hr. Morning headaches that go away through out the day. No history of sleep studies. Accompanied by: Self / Same As Patient Allergies No Known Allergies Allergy (Verified 07/30/25 09:37) HPI Comments Details: 35 year old female is referred to us by her psychologist Chandrika Jean Baptiste. 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 She has been a horrible sleeper her entire life, she wakes up multiple times a night, at least 15 times on a bad night. She was prescribed ambien and wakes up 4 times when she takes it. She denies snoring, gasping, for air. She has morning headaches occasionaly 2-3x times a week, hydrates and it resolves. She denies bruxism, jaw clenching, Gerd. She moves her feet alot at night usually feels soothed by the movement. She is chronically fatigued and takes a 30 min nap as she is able. Memory is stable.She has anxiety and depression due to mood irritabilty, she started prozac 2 months ago and since has improved. Diet stable. She denies alcohol, smoking and MJ/edibles. [facility] Medical History No pertinent past medical history Surgical History Hx of appendectomy Social History Household Members: Family Housing: House 75 years or older and lives alone: No Alcohol intake: current Alcohol intake frequency: holidays/special occasions only Alcohol type: other Patient Tobacco Use Status: Never used Tobacco e-Cigarette/Vaping Use: Never Used Special mookie needs: No service: No Current occupational status: employed Current occupation: [employer] Current occupational exposures/hazards: No Cognitive needs: No Hearing needs: No Vision needs: No Physical Exam Vital Signs: Last Vital Signs Pulse 82 07/30/25 09:35 BP 120/72 07/30/25 09:35 Pulse Ox 100 07/30/25 09:35 Oxygen Delivery Method Room Air 07/30/25 09:35 BMI result Body Mass Index 30.5 Const General: cooperative, comfortable and no acute distress Nutritional Appearance: overweight Orientation/consciousness: patient oriented x3 HEENT Face and sinus: Yes face symmetric Teeth and gingiva: other (mallampti score is 4) Neck Neck: Yes full ROM Resp Effort & Inspection: normal respiratory effort and able to speak in complete sentences Neuro General: patient oriented x3 and moves all extremities Cranial nerves: Yes Normal facial strength present, Yes Midline tongue present, Yes Ability to bilaterally rotate head present and Yes Ability to bilaterally elevate shoulders present Cognition (Neuro): normal cognition Gait exam (Neuro): Normal gait present Motor exam (neuro): 5/5 motor strength present throughout and Normal motor muscle tone present throughout Psych Appearance: grossly normal Thought content: Normal thought content present Insight: Good insight present (Psych) Results Reviewed Results Reviewed: labs reviewed with pt. Assessment & Plan Assessment & Plan (1) Sleep disorder: Code(s): G47.9 - Sleep disorder, unspecified Category: Medical (2) Hypersomnia: Code(s): G47.10 - Hypersomnia, unspecified Category: Medical (3) Anemia: Code(s): D64.9 - Anemia, unspecified Category: Medical Qualifiers: Anemia type: iron deficiency Iron deficiency anemia type: unspecified iron deficiency Qualified Code(s): D50.9 - Iron deficiency anemia, unspecified Plan HST r/o dilma Labs r/o dilma Magnesium 200mg po daily at bedtime f/u in 3 months Orders: Orders RT home sleep study Today G47.19 - Other hypersomnia Methylmalonic Acid Today D64.9 - Anemia, unspecified, G47.9 - Sleep disorder, unspecified, R53.83 - Other fatigue TSH reflex Free T4 Today D64.9 - Anemia, unspecified Ferritin Today D64.9 - Anemia, unspecified Homocysteine Today D64.9 - Anemia, unspecified, G47.9 - Sleep disorder, unspecified, R53.83 - Other fatigue Vitamin D 25-OH Total Today D64.9 - Anemia, unspecified Vitamin B12 and Folate Today D64.9 - Anemia, unspecified Medications: New magnesium glycinate (Mag Glycinate) 200 mg (2 x 100 mg) PO DAILY 180 tabs 0RF sleep 3 months MDD 200 G47.10 - Hypersomnia, unspecified Coding Level of Care Code New Pt Level 4 (20364) Diagnoses Sleep disorder G47.9 Hypersomnia G47.10 Iron deficiency anemia, unspecified iron deficiency anemia type D50.9 Anemia type: iron deficiency Iron deficiency anemia type: unspecified iron deficiency Sleep Questionnaire Difficulty falling asleep: No Difficulty staying asleep?: Yes Number of arousals: 15 Snoring: No Witnessed apneas: No Gasping arousals: No Nocturia: No GERD: No Vivid dreams: No Acting out dreams: No Abnormal behavior in sleep: No Abnormal movements in sleep: No Morning headaches: No Excessive daytime sleepiness: Yes Daytime naps: Yes (30 min) Restless legs: No Hallucinations: No Sleep paralysis: No Drop attacks: No Sleep Study: No CPAP: No
== END 2025-07-30 10:19 | disposition home or self-care (01) ==
LOC: HO.HSMC 09:21
PROVIDERS: PCP Family Medicine; Visit Provider Physician Assistant Medical
DX: G47.9 Sleep disorder, unspecified (principal); G47.10 Hypersomnia, unspecified; D50.9 Iron deficiency anemia, unspecified
CPT/HCPCS: 99204

== ENCOUNTER 2025-07-31 09:20 | Outpatient (AMB) | payer OTHER, SELFPAY ==
--- NOTE | 2025-07-31 09:44 | A.OFFPSYCH_ITS ---
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 Pt reports tolerating the prozac 40mg daily. She reports she did not reduce the prozac to 20mg becuase she started to feel better immediately after knowing her thyroid was good. She did not get EKG done yet. She reports much improvement in depression, anxiety and attention with the prozac. She has been taking it for 6 weeks. Her PHQ9=11 down from 16 and her GAD7=5 down from 17. She reports falling asleep with the ambien but not staying asleep; she is still waking up to many times a night. She has good sleep hygiene but that does not help. She saw sleep specialist and will have sleep study. She denies SI or HI. She reports her mother was just diagnosed with bladder cancer and has tests coming up to learn more before a treatment plan can be made; pt thinks the prozac is helping her cope. HX: Pt reports having trouble with concentration, focus, attention, and forgetfulness her whole life. She reports being timid and shy as a child. She was diagnosed with dyslexia when she started school and started private school due to her dyslexia by 3rd grade. she thinks that the smaller classes helped her graduate. She reports anxiety started when her twin girls were born 8 years ago. She has never had any medication for her anxiety or attention problems. She does feels that she has to work harder at daily life than her peers. She has more trouble at home with keeping everything organized; at work she says she has less trouble because she has been doing the same job for 27 years. She describes feeling anxious nervous and worried every day she has trouble controlling her worry every single day she worries about her kids and her she worries about bad things happening to her children. When she hears something on the news about bad things happening about children she feels very empathic and worried about her own children she has trouble relaxing she can become irritable and annoyed and frequently feels something bad will happen. She also reports a decreased interest in activities she feels down and depressed at times she feels bad about herself she feels like a failure at times she has trouble concentrating on things such as reading the newspaper or watching television. She reports frequent forgetfulness for example she will have something on her to-do list at home and she might think of it several times and then get distracted and at the end of the day and the next day she will recall that she was supposed to do something yesterday. She reports that her brain is always busy is always thinking of multiple things to do she often procrastinates she often feels overwhelmed she has trouble wrapping up final details of projects she has trouble organizing tasks that are more complex she is forgetful of appointments paying bills or other obligations she will procrastinate or delay if it is a complex task she does fidget if she is required to sit for a long period of time she feels overly active and compelled to be busy all the time she can make small mistakes especially him pouring projects. She does have trouble concentrating on what people are saying to her even when they are speaking directly to her she can become distracted by noise around her she often finishes other people's sentences and has difficulty waiting her turn and can interrupt others when they are busy. Recently her and both daughters were diagnosed with ADHD and she feels she has similar symptoms to 1 of her daughters. She has seen the significant change in both her and daughters with medication interventions. She was motivated to seek out help because she has been coping with these things for long and would like some help. She denies SI and HI. There is no evidence of psychosis or oziel Past Psychiatric History: dx dyslexia in grade school; no past psych tx Subjective Subjective Medication Compliance: Yes Side effects from medications: Yes (daytime sleepiness and sedation) Review of Systems Medical Review of Systems: unchanged Mental Status Exam Mental Status Exam Patient Appearance: Well Grooomed and Appropriate Patient Orientation: Person, Place, Time and Situation Level of Consciousness: Awake, Appropriate, Drowsy and Alert Patient Behavior: Appropriate, Cooperative, Anxious and Good Eye Contact Mood Description: Appropriate and Sad Affect Description: Appropriate and Sad Patient Cognition Impaired: No Ability to Follow Directions: Fair Speech Pattern: Clear and Appropriate Memory Description: Episodic Impaired Hallucinations: None Delusions: Not Present Thought Process: Intact, Distracted and Goal Oriented Thought Content: positive for Intact and positive for Goal Oriented Judgement: Good Assessment and Plan Assessment & Plan (1) ADHD (attention deficit hyperactivity disorder), combined type: Status: Acute Code(s): F90.2 - Attention-deficit hyperactivity disorder, combined type (2) ERNESTO (generalized anxiety disorder): Status: Acute Code(s): F41.1 - Generalized anxiety disorder (3) Depression, unspecified: Status: Acute Qualifiers: Depression Type: unspecified Qualified Code(s): F32.A - Depression, unspecified Code(s): F32.A - Depression, unspecified Plan EKG due to risk of qtc prolongation stop ambian 5mg start ambien CR 6.25 mg at bedtime return in 8 week discussed refer back to PCP after next visit if improvements Medications: New zolpidem ER (Ambien CR) 6.25 mg PO BEDTIME PRN 30 tabs 2RF sleep Discontinued zolpidem (Ambien) Discontinued Reason: Doctor's Order 5 mg PO BEDTIME PRN 30 tabs 0RF sleep Counseling and coordination of Care Pt. Self Management counseling: Maintenance-social rhythm, Mod caffeine/ETOH intake, Nutrition education and improvement, Sleep hygiene, Behavior activation, General coping skills and Organization skills and time management Medication management counseling: Effectiveness, Side effects, Dosing range, Duration, Drug interaction and Adherence Diagnosis and Prognosis Counseling: Accuracy of diagnosis, Prognosis over time, Impact of diagnosis on life functions, Impact of family relationship, Problematic behaviors secondary to diagnosis and Adequacy of current interventions Details: I spent 30 minutes reviewing the record, seeing the patient and documenting in the medical record. Counseling provided to the patient/caregiver as outlined below. Addressed patient/caregiver concerns regarding current medication regime including effective adherence. Addressed patient/caregiver concerns regarding diagnosis and prognosis including accuracy of diagnosis, prognosis over time, impact of diagnosis. Addressed patient/caregiver concerns regarding impact of recent stressors. [facility] Medical History No pertinent past medical history Surgical History Hx of appendectomy Social History Household Members: Family Housing: House 75 years or older and lives alone: No Alcohol intake: current Alcohol intake frequency: holidays/special occasions only Alcohol type: other Patient Tobacco Use Status: Never used Tobacco e-Cigarette/Vaping Use: Never Used Special mookie needs: No service: No Current occupational status: employed Current occupation: [employer] Current occupational exposures/hazards: No Cognitive needs: No Hearing needs: No Vision needs: No Social History: lives with and 2 daughters (twins 8 yr old) 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 Substance History: none Trauma History: none (having dyslexia and school experience can be traumatic) Coding Level of Care Code Est Pt Level 4 (62305) Diagnoses ADHD (attention deficit hyperactivity disorder), combined type F90.2 ERNESTO (generalized anxiety disorder) F41.1 Depression, unspecified depression type F32.A Depression Type: unspecified
== END 2025-07-31 10:02 | disposition home or self-care (01) ==
LOC: HO.HOP 09:20
PROVIDERS: PCP Family Medicine; Visit Provider Clinical Nurse Specialist Psychiatric/Mental Health
DX: F90.2 Attention-deficit hyperactivity disorder, combined type (principal); F41.1 Generalized anxiety disorder; F32.A Depression, unspecified
CPT/HCPCS: 99214

== ENCOUNTER → 2025-07-31 09:20 | Outpatient (REF) | payer OTHER, SELFPAY ==
--- NOTE | 2025-07-31 10:07 | ECG_ITS ---
Test Reason : z91.89 Blood Pressure : */* mmHG Vent. Rate : 61 BPM Atrial Rate : 61 BPM P-R Int : 170 ms QRS Dur : 82 ms QT Int : 436 ms P-R-T Axes : 62 12 42 degrees QTcB Int : 438 ms Normal sinus rhythm Low voltage QRS Borderline ECG No previous ECGs available Referred By: Radha Jean Baptiste Electronically Signed By: Wilder Edwards
[2025-07-31 11:37] LABS: Ferritin 45 ng/mL (10-122); Folate 9.5 ng/mL (> or = 4.0); Vitamin B12 405 pg/mL (200-900)
== END ==
LOC: HO.CARD 09:20
PROVIDERS: Physician Assistant Medical; PCP Family Medicine; Visit Provider Clinical Nurse Specialist Psychiatric/Mental Health
DX: F90.2 Attention-deficit hyperactivity disorder, combined type (principal); R53.83 Other fatigue; F41.8 Other specified anxiety disorders; G47.9 Sleep disorder, unspecified; D64.9 Anemia, unspecified; R00.0 Tachycardia, unspecified; R06.02 Shortness of breath; Z91.89 Other specified personal risk factors, not elsewhere classified; Z79.899 Other long term (current) drug therapy
CPT/HCPCS: 36415; 82306; 82607; 82728; 82746; 83090; 83921; 84443; 93005

== ENCOUNTER → 2025-07-31 10:07 | Outpatient (BNV) | payer OTHER, SELFPAY | PROVIDERS: PCP Family Medicine; Visit Provider Internal Medicine Cardiovascular Disease | DX: Z91.89 Other specified personal risk factors, not elsewhere classified (principal) | CPT/HCPCS: 93010 ==

== ENCOUNTER 2025-09-11 11:21 | Outpatient (AMB) | payer OTHER, SELFPAY ==
--- NOTE | 2025-09-11 11:27 | MHC.PC.OV ---
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: No Is last menstrual period known: Yes Last menstrual period: 09/04/25 Post menopausal: No Patient : No Allergies No Known Allergies Allergy (Verified 09/11/25 11:31) Medication List - Last Reconciled 09/11/25 by Jaime Nguyen MD cholecalciferol (vitamin D3) 25 mcg PO DAILY 3 months ezetimibe (Zetia) 10 mg PO DAILY ferrous sulfate 325 mg PO DAILY MDD 1 tablet fluoxetine 40 mg PO DAILY magnesium glycinate (Mag Glycinate) 200 mg (2 x 100 mg) PO DAILY 3 months MDD 200 mecobalamin (vitamin B12) 1,000 mcg sublingual BEDTIME 3 months MDD 1 tablet tirzepatide (weight loss) (Zepbound) 12.5 mg (0.5 mL) subcut QWEEK 28 days zolpidem ER (Ambien CR) 6.25 mg PO BEDTIME PRN Tobacco use date assessed: 09/11/25 Dental Screening Dental Screen Date: 09/11/25 Did you have a dental visit in the last 12 months?: Yes Did you have a dental problem in the last 6 months where you did not have access to dental care?: No Was dental information given to patient?: Patient has dentist HPI htn/hyperlipidemia/weight HPI Details 35 y/o female presents to f/u HTN, lipids, weight. BP today 96/50, 72p. Weight 181 lbs, BMI 31.1. No recent lipid panel to review. [facility] Medical History No pertinent past medical history Surgical History Hx of appendectomy Social History Household Members: Family Housing: House 75 years or older and lives alone: No Alcohol intake: current Alcohol intake frequency: holidays/special occasions only Alcohol type: other Patient Tobacco Use Status: Never used Tobacco e-Cigarette/Vaping Use: Never Used Second Hand Smoke Exposure: No Special mookie needs: No service: No Current occupational status: employed Current occupation: [employer] Current occupational exposures/hazards: No Cognitive needs: No Hearing needs: No Vision needs: No Female Reproductive History Menstrual Date of last menstrual period: 09/04/25 Questionnaire Thrive Questionnaire Date Thrive assessed: 10/18/24 I am a: Patient What is your living situation today?: I have a steady place to live Within the past 12 months, did the food you bought not last and you didn't have the money to get more?: Never true Within the past 12 months, did you worry whether your food would run out before you got money to buy more?: Never true Do you have trouble paying for medicines?: No Do you have trouble getting transportation to medical appointments?: No Do you have trouble paying your heating and electricity bill?: No Do you have trouble taking care of your child, family member or friend?: No Do you have trouble with day-to-day activities such as bathing, preparing meals, shopping, managing finances, etc.?: No Are you currently unemployed and looking for a job?: No Are you interested in more education?: No Please select the resources that you would like help with: None Currently or been in a relationship where the following occur: No concerns reported THRIVE Score: 0 ERNESTO-7 AMB Questionnaire ERNESTO-7 Date ERNESTO - 7 assessed: 10/24/24 Source: Developed by Drs. Sina Scanlon, Loly Armas, Jaya Eason and colleagues, with an educational lourdes from [employer]. Review of Systems Const Denies chills, Denies fatigue, Denies fever(s), Denies headache(s) and Denies weakness ENT Denies dizziness and Denies headache(s) Card Denies dyspnea Resp Denies cough, Denies dyspnea, Denies wheezing and Denies other (shortness of breath) Musc Denies numbness and Denies tingling Neuro Denies dizziness, Denies headache(s), Denies numbness, Denies tingling and Denies weakness Psych Denies anxiety and Denies depression Endo Denies fatigue Aller/Immun Denies wheezing Physical exam (Primary Care) Vital Signs: Last Vital Signs Temp 97.5 F 09/11/25 11:32 Pulse 72 09/11/25 11:32 Resp 16 09/11/25 11:32 BP 96/50 L 09/11/25 11:32 Pulse Ox 100 09/11/25 11:32 Oxygen Delivery Method Room Air 09/11/25 11:32 BMI result Body Mass Index 31.1 Tobacco/Smoking Status: Tobacco use Status Tobacco use date assessed 09/11/25 09/11/25 11:35 Patient Tobacco Use Status Never used Tobacco 09/11/25 11:30 e-Cigarette/Vaping Use Never Used 09/11/25 11:30 Thrive Assessment: Date of Thrive Assessment Date Thrive assessed 10/18/24 09/11/25 11:30 Currently or been in a relationship where the following occur: No concerns reported Const General: well developed; No acute distress Nutritional Appearance: well nourished Orientation/consciousness: patient oriented x3 HENMT Head: Yes normocephalic and Yes atraumatic Eyes General: appearance normal, both eyes and all related structures Pupils: Equal, round and reactive pupils present EOM: EOMs intact bilaterally Resp Effort & Inspection: normal respiratory effort Neuro General: patient oriented x3 and gait normal Cranial nerves: Yes Equal, round and reactive pupils present Psych Affect: normal affect Coding Level of Care Code Est Pt Level 4 (88474) Diagnoses Hyperlipidemia E78.5 Obesity (BMI 30-39.9) E66.9 ERNESTO (generalized anxiety disorder) F41.1 Assessment & Plan Assessment & Plan (1) Hyperlipidemia: Code(s): E78.5 - Hyperlipidemia, unspecified Category: Medical Plan: Patient is now taking Zetia and tolerating well. Has not had her labs drawn yet but will do so we can follow-up at her next visit (2) Obesity (BMI 30-39.9): Code(s): E66.9 - Obesity, unspecified Category: Medical Plan: Had good results with Wegovy but now notes that she has reached maximum dosing and is gaining back some weight. She would like to switch to a form of tirzepatide. Will send script for Zepbound. May need to be changed to Mounjaro if denied (3) ERNESTO (generalized anxiety disorder): Code(s): F41.1 - Generalized anxiety disorder Category: Medical Plan: Patient notes a heady breathlessness feeling associated with start of fluoxetine. Heart and lung exam today is normal She says this is going away She will let know if not resolved or worsens. Medications: New tirzepatide (weight loss) (Zepbound) 12.5 mg (0.5 mL) subcut QWEEK 2 mL 3RF 28 days Discontinued semaglutide (weight loss) administer weeks 1 through 4 of therapy Discontinued Reason: Doctor's Order 2.4 mg (0.75 mL) subcut QWEEK 28 days 3 mL 2RF E66.9 - Obesity, unspecified
[2025-09-11 11:32] VITALS: BP 96/50; PULSE 72; RESP 16; TEMP 36.4; O2SAT 100; BMI 31.1
== END 2025-09-11 11:46 | disposition home or self-care (01) ==
LOC: HO.HMCFM 11:22
PROVIDERS: PCP Family Medicine; Visit Provider Family Medicine
DX: E78.5 Hyperlipidemia, unspecified (principal); E66.9 Obesity, unspecified; F41.1 Generalized anxiety disorder; Z68.31 Body mass index [BMI] 31.0-31.9, adult